=== PATIENT | female | born 1950 | race Caucasian/White ===

== ENCOUNTER 2018-05-03 09:34 | Emergency (ER) | payer MEDICARE, OTHER, SELFPAY ==
[2018-05-03 09:36] VITALS: BP 181/101; PULSE 108; RESP 20; TEMP 37.2; O2SAT 99; BMI 23.3
--- NOTE | 2018-05-03 10:20 | RAD_ITS ---
STUDY: X-RAY - LEFT WRIST REASON FOR EXAM: Female, 68 years old. Trauma. Left ankle pain. TECHNIQUE: 3 view(s) of the wrist were obtained. COMPARISON: None. FINDINGS: Normal visualized distal radius and ulna. Normal radiocarpal articulation. Normal distal radioulnar articulation. There is possible chip fracture at the anterior lateral aspect of the scaphoid bone. Normal carpal articulations. Normal carpometacarpal articulation of the thumb. Normal second through fifth carpometacarpal articulations. Normal visualized metacarpal bones. Calcifications of the triangular fibrocartilage are noted consistent with chondrocalcinosis. RAD/Wrist min 3 Views IMPRESSION: There is possible chip fracture at the anterior lateral aspect of the scaphoid bone. Electronically Signed: Nayana Perez MD at 11:21 EDT Tel , Service support ,
[2018-05-03] MEDS: HYDROcodone Bitartrate/Apap 5/325 Tablet PO (10:22)
[2018-05-03] MEDS: Triamcinolone Acetonide 40 MG/ML Vial IU (10:23)
[2018-05-03 12:30] LABS: Pathologist Comment May follow
[2018-05-03 12:45] LABS: RBC /Synovial Fluid 0.008 10^6/uL (0); Synovial Fld Mononuclear WBC % 16.9 %; Synovial Fld Polynuclear WBC % 83.1 %
[2018-05-03 13:05] LABS: AUTO B FLUID DILUENT BKGD CT WBC <0.1 RBC <0.01 (W<.1,R<.01)
[2018-05-03 13:06] LABS: Appearance /Synovial Fluid Sl Cl (CLEAR); Color / Synovial Fluid Yellow (Pale Yellow); Source / Synovial Fluid LEFT WRIST; Source- Body Fluid SYNOVIAL
[2018-05-03 13:24] LABS: Body Fluid QC Type(s) BF1Q; Lymph 10 %; Monocyte /Synovial Fluid 3 %; Neutrophil 84 % (0-25); Other Cell /Synovial Fluid 3 %
--- NOTE | 2018-05-03 14:56 | ED.VISSUMM ---
- ER Visit Summary Date of Service: 05/03/18 Chief Complaint: Atraumatic left wrist pain and swelling History of Present Illness: The patient is a 68 F who presents with atraumatic left wrist pain and swelling. She has no history of gout or pseudogout. She is on no diuretic. She denies fever, chills or night sweats. She denies any paresthesia, anesthesia motors. She does report some redness that she noted on the dorsal ulnar side of the distal left forearm. Past medical history is unremarkable. Physical Examination: Blood pressure elevated 181/101. Heart rate 108. The left wrist is swollen compared to the right. There is an effusion. There is slight erythema and warmth. There is no lymphangitis, epitrochlear extra lymphadenopathy. There is pain with passive range of motion of the wrist. Extensor and flexor mechanism intact. Sensation is normal. Test Results: Three-view x-ray of the wrist was obtained interpreted by me as negative with no acute process. There are is arthritic changes noted. Emergency Department Course and Treatment: X-ray was obtained to see if there is evidence of pseudogout. And if there is any contraindication performing an arthrocentesis. The wrist was prepped draped sterile manner. The area was anesthetized. 1.5 cc of turbid fluid was aspirated from the left breast. There is 2+ white cells no organisms. There was not sufficient fluid for crystals. However in light of patient's findings consistent with crystal induced arthritis. The joint was instilled with 1/2 cc of Kenalog and 1/2 cc of 1% lidocaine. 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 It may contain incorrect words, spelling, and punctuation that were not noted in review of the chart prior to signing ED Disposition - Plan for ED Patient: Disposition: Home or Assisted Living Chief Complaint: Upper Extremity Injury Instructions: ED Arthritis Gout Referrals: Care Physician,No Primary [Primary Care Provider] - Alvaro Pate DO [STAFF PHYSICIAN] - 3-5 Days if not improving
[2018-05-03] MEDS: predniSONE 20 MG Tablet 60 MG PO (15:08)
[2018-05-03 15:14] VITALS: BP 145/85
[2018-05-04 16:26] LABS: Pathologist Review Reviewed
== END 2018-05-03 15:15 | disposition home or self-care (01) ==
PROVIDERS: Emergency Provider Emergency Medicine
DX: M13.132 Monoarthritis, not elsewhere classified, left wrist (principal); M10.9 Gout, unspecified
CPT/HCPCS: 20605; 20610; 73110; 87070; 87075; 87205; 89050; 89051; 89060; 99283

== ENCOUNTER → 2022-08-08 | Outpatient (CLI) | payer MEDICARE, OTHER, SELFPAY ==
--- NOTE | 2022-08-08 10:40 | ART_ITS ---
Reason For Study: BLE PAIN Left Segmental Pressures Left brachial= 186mmHg. Left posterior tibial artery = 160mmHg. Left dorsalis pedis artery = 163mmHg. The left posterior tibial artery waveforms are triphasic. The left dorsalis pedis waveforms are triphasic. Right Segmental Pressures Right brachial= 185mmHg. Right posterior tibial artery = 62mmHg. Right dorsalis pedis artery = 82mmHg. The right posterior tibial artery waveforms are monophasic. The right dorsalis pedis waveforms are monophasic. Indices The right resting ankle brachial index is 0.44. The right ankle brachial index by the posterior tibial artery is 0.33. The right ankle brachial index by the dorsalis pedis is 0.44. The left resting ankle brachial index is 0.88. The left ankle brachial index by the posterior tibial artery is 0.86. The left ankle brachial index by the dorsalis pedis is 0.88. VL/Ankle Brachial Index Interpretation Summary Monophasic Doppler waveforms are noted at ankle level on the right. Triphasic D oppler waveforms are noted at ankle level on the left. Pulse-volume recordings appear diminished at ankle level on the right. The resting right ankle-brachial index is severely diminished. The resti ng left ankle- brachial index is mildly diminished. There is evidence of severe arterial occlusive disease at ankle level on the ri ght. There is evidence of mild arterial occlusive disease at ankle level on the left. Ordering Physician: Michael Tanner Referring Physician: MICHAEL TANNER MD Performed By: Mary Glass RVT, RDCS
== END | disposition home or self-care (01) ==
LOC: CVS 10:38
PROVIDERS: PCP Family Medicine; Referring Provider Family Medicine; Visit Provider Family Medicine
DX: I73.9 Peripheral vascular disease, unspecified (principal)
CPT/HCPCS: 93922

== ENCOUNTER → 2022-08-26 | Outpatient (CLI) | payer MEDICARE, OTHER, SELFPAY ==
[2022-08-26 17:53] LABS: Creatinine, Serum 0.81 mg/dL (0.55-1.02); EST Glomerular Filtration Rate 74 mL/min (>60); Est Glom Filt Rate - Afr Amer 89 mL/min (>60)
== END | disposition home or self-care (01) ==
LOC: LAB 16:08
PROVIDERS: PCP Family Medicine; Visit Provider Surgery Trauma Surgery
DX: I70.221 Atherosclerosis of native arteries of extremities with rest pain, right leg (principal)
CPT/HCPCS: 36415; 82565

== ENCOUNTER → 2022-09-05 | Outpatient (CLI) | payer MEDICARE, OTHER, SELFPAY ==
--- NOTE | 2022-09-05 13:40 | CT_ITS ---
EXAM: CT ANGIOGRAPHY ABDOMEN AND PELVIS WITH RUNOFF TO THE LOWER EXTREMITIES WITH INTRAVENOUS CONTRAST CLINICAL INDICATION: atherosclerosis with rest pain TECHNIQUE: Helically acquired angiography images were obtained of the abdomen, pelvis and lower extremities with intravenous contrast using CTA runoff protocol. This CT exam was performed using one or more of the following dose reduction techniques: automated exposure control, adjustment of the mA and/or kV according to patient size, and/or use of iterative reconstruction technique. This report was created using [employer] report generation technology. MIP reconstructed images were created and reviewed. CONTRAST: IV 100mL [id number] COMPARISON: None. FINDINGS: VASCULATURE: AORTA: No acute findings. Normal caliber abdominal aorta. No occlusion or significant stenosis. No dissection. CELIAC TRUNK AND MESENTERIC ARTERIES: JOE is absent. No occlusion or significant stenosis of the celiac and SMA. No dissection. RENAL ARTERIES: No acute findings. No occlusion or significant stenosis. No dissection. RIGHT ILIAC ARTERIES: Diffuse atherosclerosis. No occlusion or significant stenosis. No dissection. RIGHT FEMORAL/POPLITEAL ARTERIES: Right femoral artery is diffusely atherosclerotic and small in size. Proximal 4 to 5 cm of the right popliteal artery is occluded but reconstituted via geniculate collaterals. RIGHT CALF/FOOT ARTERIES: Only the right dorsalis pedis artery extends below the ankle. Very faint filling of the right posterior tibial and peroneal arteries. LEFT ILIAC ARTERIES: Diffuse atherosclerosis. No occlusion or significant stenosis. No dissection. LEFT FEMORAL/POPLITEAL ARTERIES: No acute findings. No occlusion or significant stenosis. No dissection. LEFT CALF/FOOT ARTERIES: Left trifurcation vessels are patent but quite small in size. LOWER THORAX: Lung bases are clear. Borderline cardiomegaly. No pericardial effusion. ABDOMEN: LIVER: Moderate hepatic steatosis. No focal mass. GALLBLADDER AND BILE DUCTS: Normal. No calcified gallstones. No gallbladder distention or wall edema. No intra- or extrahepatic biliary ductal dilation. PANCREAS: Normal. No focal cystic or solid mass. SPLEEN: Normal. Normal size without focal cystic or solid mass. ADRENALS: Normal. No nodules. KIDNEYS AND URETERS: Exophytic 2 cm left renal cyst. Normal renal size and position. No hydronephrosis. STOMACH AND BOWEL: Normal. No stomach or bowel distention. No focal inflammatory change. PELVIS: APPENDIX: No evidence of acute appendicitis. BLADDER: Normal. REPRODUCTIVE: Unremarkable as visualized. No mass. ABDOMEN, PELVIS and LOWER EXTREMITIES: INTRAPERITONEAL SPACE: Normal. No ascites or other fluid collection. No free air. BONES/JOINTS: Normal. No suspicious lytic or blastic abnormality. SOFT TISSUES: Normal. No discrete abdominal or pelvic wall hernia. LYMPH NODES: Normal. No enlarged lymph nodes. OTHER FINDINGS: CT/CTA Abd w/Runoff W/WO Contrast IMPRESSION: 1. Occlusion of the proximal 5 cm of the right popliteal artery with single vessel runoff to the right foot and ankle. 2. Small but patent left trifurcation vessels. Electronically Signed: Ruel Couch MD at 15:13 EST ,
== END | disposition home or self-care (01) ==
LOC: CT 13:37
PROVIDERS: PCP Family Medicine; Referring Provider Surgery Trauma Surgery; Visit Provider Surgery Trauma Surgery
DX: I70.221 Atherosclerosis of native arteries of extremities with rest pain, right leg (principal)
CPT/HCPCS: 75635; Q9967

== ENCOUNTER 2022-10-02 06:49 | Day surgery (SDC) | payer MEDICARE, OTHER, SELFPAY ==
[2022-10-01 07:13] VITALS: BMI 22.8
[2022-10-02 07:06] LABS: Hematocrit 28.4 % (37-47); Hemoglobin 9.1 g/dL (12.0-15.0); Mean Corpuscular Hgb 28.3 pg (27.0-32.0); Mean Corpuscular Volume 88.2 fL (81-99); Platelet Count 425 K/mm3 (150-450); RBC Distribution Width CV 15.5 % (11.6-14.6); RBC Distribution Width SD 49.7 fl (35.1-43.9); Red Blood Count 3.22 M/mm3 (4.2-5.4); White Blood Count 8.4 K/mm3 (4.4-11.0)
[2022-10-02 07:18] LABS: BUN 13 mg/dL (7-18); Creatinine, Serum 0.83 mg/dL (0.55-1.02); Glucose 111 mg/dL (74-106)
[2022-10-02 07:19] LABS: Anion Gap 6 (5-15); BUN/Creat Ratio 15.7 RATIO (10-20); Calcium,Total 8.7 mg/dL (8.5-10.1); Chloride 109 mmol/L (98-107); EST Glomerular Filtration Rate 72 mL/min (>60); Est Glom Filt Rate - Afr Amer 87 mL/min (>60); Estimated Creatinine Clearance 69.66 ml/min; Sodium Level 137 mmol/L (136-145)
--- NOTE | 2022-10-02 21:46 | PCM.OPRPT ---
Report of Operation Date of Procedure: 10/02/22 Pre-Operative Diagnosis: atherosclerosis with rest pain, right lower extremity Post-Operative Diagnosis: same Surgery/Procedure Performed:: aortogram, RLE runoff right popliteal atherectomy/DCB Description of Surgical Findings:: above knee popliteal occlusion with reconstitution of p2 segment, AT runoff Resolved with satisfactory result after intervention Surgeon: Robbin White Type of Anesthesia: Local and Sedation,Conscious Estimated Blood Loss (mL): 5 Description of Procedure: HPI: Patient is a 72 female with abrupt onset of shortness of claudication and nocturnal rest pain. She had noninvasive vascular which revealed significant arterial sufficiency and CT angiography revealed a short segment popliteal occlusion. She presents now for angiogram possible invention. Description of procedure: Upon obtaining informed consent and verification of correct patient procedure site the patient was taken to the [facility] where she was positioned prepped and draped in usual sterile fashion. Timeout was then performed and conscious sedation administered with intermittent doses of Versed and fentanyl. Skin over the left common femoral artery was anesthetized 1% lidocaine and ultrasound used to access the vessel in retrograde fashion using micropuncture needle and wire. There is unchanged for a micropuncture sheath through which hand-injection femoral angiogram was performed which revealed satisfactory placement no extravasation or dissection. Through this a Bentson wire was advanced and the micropuncture sheath exchanged out for a short 5 Armenian sheath. Through the 5 Armenian sheath and Omni Flush catheter was advanced and abdominal aorta and digital traction aortogram pelvic angiogram was performed. Using the Omni Flush catheter and Bentson wire we navigated to the contralateral iliac system advancing a catheter into the distal external iliac artery. This position subtraction angiography was performed with serial images of the right lower extremity which revealed a above-knee popliteal occlusion. This was felt to be appropriate for endovascular invention, so the Bentson wire was readvanced through the Omni Flush catheter advanced into the distal superficial femoral artery. Bentson wire was then withdrawn and the 5 Armenian sheath exchanged out for a 7 Armenian destination sheath which was advanced into position with the distal tip in the proximal superficial femoral artery. The patient was then heparinized systemically none to circulate for 3 minutes. Next using Bentson wire and a quick cross catheter we were able to successfully cross the total occlusion remaining within the true lumen. Catheter was advanced beyond the lesion and the wire withdrawn, and hand-injection through the catheter revealed position within the true lumen. We then advanced a George bare wire through the quick cross catheter into position beyond the lesion and withdrew the quick cross catheter. A George Embo shield was advanced over the wire and positioned in the distal popliteal artery. Next a [employer] jetstream rotational atherectomy device was brought in the field and prep for drug and alcohol treatment specialist instructions. This then advanced over the filter wire and positioned cephalad to the occlusion. It was then engaged in blades down configuration for 2 passes and then withdrawn. Repeat angiography revealed significant luminal gain with antegrade flow transit across the lesion. No evidence of embolization. Next a Serranator serrated angioplasty balloon was brought on the field and prep for drug and alcohol treatment specialist instruction. This was then advanced over the wire, positioned within the lesion and inflated to nominal. Below is a deflated withdrawn, and repeat angiography revealed satisfactory luminal gain with no residual stenosis, no extravasation, no dissection. She is felt to be appropriate response to the lesion and that it would respond well to paclitaxel coated balloon angioplasty, so a [employer] 4 x 60 angioplasty balloon was then advanced in the position inflated to nominal for 3 minutes then deflated withdrawn. Repeat angiography revealed satisfactory resolution of lesion with no extravasation dissection or residual stenosis. There was a luminal irregularity distal to the lesion but proximal to the filter that appeared to be some embolism in transit. The balloon was then reinserted centered on the irregularity, and inflated nominal for 2 minutes then deflated withdrawn. The lesion appeared to dislodge and be caught by the filter, so the filter was then retrieved and withdrawn with obvious debris in the filter upon its removal. Completion angiography revealed no residual stenosis or luminal irregularity and preserved tibial runoff. See no further need for intervention the 7 Armenian sheath exchanged out for a short 7 Armenian sheath followed by Marcelino and 2 minutes of manual pressure. At the clean the case patient was taken to the recovery room anticipated discharge home after bedrest. Radiograph interpretation: Abdominal aorta normal caliber with diffuse calcification but no stenosis. Left common iliac artery widely patent with diffuse mild atherosclerosis and calcification but no stenosis. Left internal iliac artery patent with no significant stenosis. Left external iliac and common femoral artery patent with no significant atherosclerosis or stenosis. Right common iliac artery patent with mild to moderate diffuse atherosclerosis, calcification but no significant stenosis. Right internal iliac artery small in caliber with diffuse atherosclerosis but patent. Right external iliac artery patent with mild diffuse atherosclerosis but no significant stenosis. Right common femoral artery patent with no significant atherosclerosis or stenosis, right profundofemoral artery widely patent no atherosclerosis or stenosis right superficial femoral artery widely patent with no significant atherosclerosis or stenosis. Right above-knee popliteal total occlusion with reconstitution of the P2 segment via collaterals, with patent mild atherosclerosis of the remainder of the popliteal artery. The anterior tibial artery is a dominant outflow and is large in caliber, widely patent with no sign of atherosclerosis. The tibioperoneal trunk is patent with no significant atherosclerosis or stenosis. The peroneal artery occludes at its origin and reconstitutes a small caliber vessel intermittently throughout the lower leg. The posterior tibial artery does not appear to opacify at any point.
[2023-12-18 16:03] LABS: ACT Activated Clotting Time 203 sec (74-137)
== END 2022-10-02 23:59 | disposition home or self-care (01) ==
PROVIDERS: PCP Family Medicine; Referring Provider Surgery Trauma Surgery; Visit Provider Surgery Trauma Surgery
DX: I70.221 Atherosclerosis of native arteries of extremities with rest pain, right leg (principal); I70.92 Chronic total occlusion of artery of the extremities; F17.210 Nicotine dependence, cigarettes, uncomplicated; Z79.82 Long term (current) use of aspirin; Z79.899 Other long term (current) drug therapy
CPT/HCPCS: 37184; 36200; 36245; 36415; 37224; 37225; 75625; 75710; 76937; 80048; 85027; 85347; 99152; 99153; C1724; C1725; C1760; C1769; C1884; C2623; J7030; J7040; Q9967; C1887; C1894

== ENCOUNTER → 2022-10-16 | Outpatient (CLI) | payer MEDICARE, OTHER, SELFPAY ==
--- NOTE | 2022-10-16 12:32 | ADUL_ITS ---
Reason For Study: S/P Rt Jessica Atherectomy Right Velocities Ext. Iliac Artery, dist = 147.4 cm./sec. Common Femoral Artery, mid = 146.7 cm./sec. Supf Femoral Artery, prox = 128.6 cm./sec. Supf Femoral Artery, mid = 138.9 cm./sec. Supf Femoral Artery, dist. = 177.8 cm./sec. Profunda Femoral Artery = 70.7 cm./sec. Popliteal Artery, mid = 81.8 cm./sec. Post. Tibial Artery, prox = 73.2 cm./sec. Post. Tibial Artery, mid = 28.4 cm./sec. Post. Tibial Artery, dist = 25.0 cm./sec. Peroneal Artery, prox = 59.8 cm./sec. Peroneal Artery, mid = 37.2 cm./sec. Peroneal Artery,dist = 65.1 cm./sec. Ant. Tibial Artery, prox = 44.1 cm./sec. Ant. Tibial Artery, mid = 66.8 cm./sec. Ant. Tibial Artery, dist = 85.5 cm./sec. Procedure The exam was diagnostic. Exam performed in department. VL/US Art Duplex Unilat Lower Ext Interpretation Summary Right lower extremity arteries patent with normal waveforms and velocities thro ughout with no stenosis identified. Ordering Physician: Robbin White Referring Physician: Elizabeth Tanner Performed By: Abdulaziz Franco, RVT
--- NOTE | 2022-10-16 12:32 | ART_ITS ---
Reason For Study: S/P Rt Jessica Atherectomy Procedure A bilateral lower extremity continuous wave Doppler with analog waveform analysis and ankle brachial indexes. Left Segmental Pressures Left brachial= 147mmHg. Left posterior tibial artery = 136mmHg. Left dorsalis pedis artery = 122mmHg. The left posterior tibial artery waveforms are biphasic. The left dorsalis pedis waveforms are triphasic. Right Segmental Pressures Right brachial= 142mmHg. Right posterior tibial artery = 129mmHg. Right dorsalis pedis artery = 143mmHg. The right posterior tibial artery waveforms are biphasic. The right dorsalis pedis waveforms are triphasic. Indices The right ankle brachial index by the posterior tibial artery is 0.88. The right ankle brachial index by the dorsalis pedis is 0.97. The left ankle brachial index by the posterior tibial artery is 0.93. The left ankle brachial index by the dorsalis pedis is 0.83. VL/Ankle Brachial Index Interpretation Summary Right SUSAN 0.97, mild arterial insufficiency. Doppler/PVR waveforms of the right ankle normal at rest. Left SUSAN 0.93, mild arterial insufficiency. Doppler/PVR waveforms of the left a nkle normal at rest. Ordering Physician: Robbin White Referring Physician: Elizabeth Tanner Performed By: Abdulaziz Franco, RVT
--- NOTE | 2022-10-16 12:32 | VDLE_ITS ---
Reason For Study: LEG PAIN RIGHT LEFT GSV is normal. GSV is normal. CFV is compressible, spontaneous, competent CFV is partially compressible, spontaneous, and demonstrates pulsatile venous flow. phasic, competent, and demonstrates normal FV is compressible, spontaneous, competent augmentation. Mixed echoes noted and demonstrates pulsatile venous flow. intraluminally on the superior wall of the POP V is compressible, spontaneous, phasic, vessel at the SFJ. competent and demonstrates normal FV is compressible, spontaneous, phasic, augmentation. competent and demonstrates normal T/P Trunk is compressible. augmentation. PTV is compressible. POP V is compressible, spontaneous, phasic, RT PerV is compressible. competent and demonstrates normal Procedure augmentation. This is a venous duplex using B-mode, color T/P Trunk is compressible. flow and spectral Doppler. PTV is compressible. Exam performed in department. LT PerV is compressible. The exam was diagnostic. Zaria [facility] RN. VL/Venous Duplex US - Valentino Extrem Interpretation Summary Non-occlusive mural thrombus on the anterior wall of the left common femoral ve in. Deep veins of the right lower extremity are patent and compressible segmentally . There is no evidence of right lower extremity deep vein thrombosis. The right great sapheno us vein appears patent and compressible segmentally. Ordering Physician: Robbin White Referring Physician: Elizabeth Tanner Performed By: Abdulaziz Franco, RVT
[2022-10-16 13:06] LABS: Absolute Lymphocyte Count 1.78 X10^3/uL (0.83-4.51); Absolute Neutrophil Count 6.8 X10^3/uL (2.0-7.7); Basophil# 0.07 X10^3/uL; Basophil% 0.7 % (0-1); Eosinophil# 0.16 X10^3/uL; Eosinophils% 1.7 % (0-5); Hematocrit 25.2 % (37-47); Hemoglobin 7.7 g/dL (12.0-15.0); Lymphocyte # 1.78 X10^3/ul (0.83-4.51); Lymphocyte % 18.6 % (19-41); Mean Corp Hgb Conc 30.6 g/dL (32-36); Mean Corpuscular Hgb 26.5 pg (27.0-32.0); Mean Corpuscular Volume 86.6 fL (81-99); Mean Platelet Vol. 8.6 fl (6.2-12.0); Monocyte# 0.77 X10^3/uL; NRBC Flagged by Analyzer 0 % (0-5); Neutrophil # 6.76 X10^3/uL (2.7-7.7); Neutrophil % 70.6 % (47-70); Platelet Count 557 K/mm3 (150-450); RBC Distribution Width CV 15.4 % (11.6-14.6); RBC Distribution Width SD 49.3 fl (35.1-43.9); Red Blood Count 2.91 M/mm3 (4.2-5.4); White Blood Count 9.6 K/mm3 (4.4-11.0)
[2022-10-16 13:59] LABS: ALB/GLOB Ratio 0.8 RATIO (0.9-2.4); AST(SGOT) 9 U/L (15-37); Alanine Aminotransfer ALT/SGPT 14 U/L (13-56); Albumin, Serum 3.4 g/dL (3.2-5.0); Alkaline Phosphatase 134 U/L (45-117); Anion Gap 8 (5-15); BUN 12 mg/dL (7-18); BUN/Creat Ratio 14.2 RATIO (10-20); CPK Total, Creatine Kinase 39 U/L (26-192); Calcium,Total 9.1 mg/dL (8.5-10.1); Chloride 104 mmol/L (98-107); Creatinine, Serum 0.85 mg/dL (0.55-1.02); EST Glomerular Filtration Rate 70 mL/min (>60); Est Glom Filt Rate - Afr Amer 84 mL/min (>60); Globulin 4.2 g/dL (2.2-4.2); Glucose 90 mg/dL (74-106); Potassium 3.8 mmol/L (3.5-5.1); Protein, Total 7.6 g/dL (6.4-8.2); Sodium Level 134 mmol/L (136-145)
== END | disposition home or self-care (01) ==
PROVIDERS: PCP Family Medicine; Referring Provider Surgery Trauma Surgery; Visit Provider Surgery Trauma Surgery
DX: F17.200 Nicotine dependence, unspecified, uncomplicated (principal); I70.221 Atherosclerosis of native arteries of extremities with rest pain, right leg; I82.409 Acute embolism and thrombosis of unspecified deep veins of unspecified lower extremity; M79.604 Pain in right leg; M79.605 Pain in left leg
CPT/HCPCS: 36415; 80053; 82550; 85025; 93922; 93926; 93970

== ENCOUNTER 2022-10-17 16:44 | Emergency (ER) | payer MEDICARE, OTHER, SELFPAY ==
[2022-10-17 16:46] VITALS: BP 122/82; PULSE 97; RESP 18; TEMP 36.6; O2SAT 100; BMI 21.7
[2022-10-17 19:33] LABS: Absolute Lymphocyte Count 2.13 X10^3/uL (0.83-4.51); Absolute Neutrophil Count 4.8 X10^3/uL (2.0-7.7); Basophil# 0.07 X10^3/uL; Basophil% 0.9 % (0-1); Eosinophil# 0.28 X10^3/uL; Eosinophils% 3.5 % (0-5); Hematocrit 23.3 % (37-47); Hemoglobin 7.1 g/dL (12.0-15.0); Lymphocyte # 2.13 X10^3/ul (0.83-4.51); Lymphocyte % 26.6 % (19-41); Mean Corp Hgb Conc 30.5 g/dL (32-36); Mean Corpuscular Volume 85.3 fL (81-99); Mean Platelet Vol. 8.5 fl (6.2-12.0); Monocyte# 0.68 X10^3/uL; Monocyte% 8.5 % (0-10); NRBC Flagged by Analyzer 0 % (0-5); Neutrophil # 4.81 X10^3/uL (2.7-7.7); Neutrophil % 59.9 % (47-70); Platelet Count 510 K/mm3 (150-450); RBC Distribution Width CV 15.5 % (11.6-14.6); RBC Distribution Width SD 47.8 fl (35.1-43.9); Red Blood Count 2.73 M/mm3 (4.2-5.4)
[2022-10-17 19:49] LABS: Anion Gap 7 (5-15); BUN 11 mg/dL (7-18); BUN/Creat Ratio 14.7 RATIO (10-20); Calcium,Total 9.1 mg/dL (8.5-10.1); Chloride 105 mmol/L (98-107); Creatinine, Serum 0.75 mg/dL (0.55-1.02); EST Glomerular Filtration Rate 81 mL/min (>60); Est Glom Filt Rate - Afr Amer 97 mL/min (>60); Glucose 96 mg/dL (74-106); Potassium 4.1 mmol/L (3.5-5.1); Sodium Level 135 mmol/L (136-145)
[2022-10-17 20:38] VITALS: BP 127/67; PULSE 101; RESP 18; O2SAT 97
--- NOTE | 2022-10-17 20:39 | EX.ED.DYSGE1 ---
HPI History of Present Illness Chief Complaint: Abn Labs Informant: patient and family Narrative Narrative: Patient presents with referral from her primary doctor. They tried to arrange outpatient transfusion but they were closed. Since the patient is having symptomatic anemia they would like to get transfusion prior to the weekend. This patient does have some anemia. She had anemia prior to her recent right popliteal angioplasty. She states they went in the left side. She had fair amount of bruising on the left side but it is now resolved. But she has felt kind of weak and tired. She is on aspirin and Plavix but denies any active bleeding. She states she does not have bloody or dark stools. She does have increased bowel movements. No blood in the urine. No vaginal bleeding. No bruising anywhere. She is not having dental or nose bleeding. She is having no areas of new pain. She states if she gets active she just does feel weak and tired but not having chest pain. She has never been syncopal or presyncopal. She does states her energy is very low. She has no fevers or chills. No abdominal pain. She is eating and drinking normally. No muscle aches. She states she has some aching in the right leg that slowly improving after surgery. I reviewed her chart regarding past medical history, surgery history, meds, she has no allergies. She has been a smoker and lives with family. [facility] Medical History Alcohol abuse Hearing loss (~1953) Postmenopausal (~2019) Tobacco dependence (~1997) Home Medications aspirin 81 mg tablet 81 mg PO DAILY 08/26/22 [History Last Taken Unknown] clopidogrel 75 mg tablet (Plavix) 75 mg PO DAILY #90 tabs 10/02/22 [Rx Last Taken Unknown] Allergy/AdvReac Type Severity Reaction Status Date / Time No Known Allergies Allergy Verified 10/17/22 16:45 Family History Father Myocardial infarction at 62 yrs old Grandmother Diabetes Sister Lung cancer Mother Cancer Other Alcohol abuse Hypertension Social History Smoking Status: Current every day smoker tobacco type: cigarettes ROS ROS ED ROS Narrative Use symptoms as negative other than HPI. Constitutional Constitutional ED: Denies fever(s) ENT ENT ED: Denies rhinorrhea Cardiovascular Cardiovascular: Denies chest pain or palpitations Respiratory/Chest Respiratory/Chest: Denies cough Gastrointestinal Gastrointestinal: Denies diarrhea or melena Genitourinary Genitourinary ED: Denies hematuria Musculoskeletal Musculoskeletal: Denies myalgias Integumentary Denies rash Neurologic Neurologic: Denies headache(s) Endocrine Endocrinology: Denies polydipsia or polyuria Hematologic/Lymphatic Hematologic/Lymphatic: Reports other Details: Patient is on Plavix but denies easy bleeding. EXAM Physical Exam Narrative Exam Narrative: Patient is awake alert. She is sitting comfortably on bed. She is in no acute distress. Breathing is normal. She does have pallor of her skin. Conjunctive is pale. Mucous membranes are moist. There is no JVD. Lungs are clear. Heart rate is regular with rate about 90. No murmur is heard. Abdomen is soft and completely nontender. She has no more bruising in the left groin. Both lower extremities are reasonably warm. No sign of cyanosis or poor blood flow. There is no CVA tenderness. Skin shows pallor but no bruising or petechiae. No intraoral petechiae. She is awake alert no acute distress. She is neurologically intact other than significantly hard of hearing which is chronic for her. Const Vital Signs: 10/17/22 16:46 10/17/22 20:37 10/17/22 20:38 Temperature 97.8 F Temperature Source Temporal Pulse Rate 97 101 H Respiratory Rate 18 18 Respiratory Effort Normal Respiratory Pattern Normal Blood Pressure 122/82 H 127/67 H Blood Pressure Mean 95 87 Pulse Ox 100 97 Oxygen Delivery Method Room Air Room Air MDM MDM MDM Narrative Medical decision making narrative: I did review outpatient labs that have been done on this patient prior to arrival here. She actually had hemoglobins only in the 9 range and mid end of September prior to surgery. Those have dropped now to 7.1. She had an intervening about 7.6. Her indices do show some component of iron deficiency. She was just started on iron and vitamin supplements today. Our blood work shows normal white count but anemia at 7.1. Platelets are mildly up at 510. Electrolytes are not showing any marked abnormalities. Renal function is normal. Her blood type is be positive. Patient was told that she can get transfusion and go home and follow-up for further work-up. I think this is reasonable since she has no source of active bleeding. She reports no black or bloody stool. Since she already started iron Hemoccult could be positive but she has had no gross bleeding. She was anemic had surgery with bruising and now has dropped. Hopefully she will improve with transfusion. We did discuss reasons to return. I rechecked the patient. She is still doing well. We are waiting for blood to arrive. Plan will be to get her transfusion. She already has the prescriptions for multivitamins, vitamin D and iron. She will be following up with her doctor. We discussed that if she has any GI bleeding, red blood or black stools or bleeding from any other sources she should return. If she develops chest pain syncope or any other complaints or sources of bleeding or pain she should return. Lab Data Attestation: I reviewed the patient's lab results. Labs: Laboratory Results - last 24 hr 10/17/22 10/17/22 10/17/22 19:25 19:25 19:25 WBC 8.0 RBC 2.73 L Hgb 7.1 L Hct 23.3 L MCV 85.3 MCH 26.0 L MCHC 30.5 L RDW Std Deviation 47.8 H RDW Coeff of Edwardo 15.5 H Plt Count 510 H MPV 8.5 Immature Gran % (Auto) 0.600 Neut % (Auto) 59.9 Lymph % (Auto) 26.6 Mora % (Auto) 8.5 Eos % (Auto) 3.5 Baso % (Auto) 0.9 Absolute Neuts (auto) 4.8 Absolute Lymphs (auto) 2.13 Nucleated RBC % 0 Sodium 135 L Potassium 4.1 Chloride 105 Carbon Dioxide 23.0 Anion Gap 7 BUN 11 Creatinine 0.75 Estim Creat Clear Calc 57.40 Est GFR (MDRD) Af Amer 97 Est GFR (MDRD) Non-Af 81 BUN/Creatinine Ratio 14.7 Glucose 96 Calcium 9.1 Blood Type B POSITIVE Antibody Screen NEGATIVE Crossmatch See Detail Discharge Plan Triage Chief Complaint: Abn Labs ED Provider: Darius Rich Dx/Rx/DC Orders Clinical Impression: Symptomatic anemia, History of transfusion of packed RBC Instructions: When You Need a Blood ..., Anemia Prescriptions: No Action aspirin 81 mg tablet 81 mg PO DAILY clopidogrel [Plavix] 75 mg tablet 75 mg PO DAILY Qty: 90 2RF Primary Care Provider: Elizabeth Tanner Referrals: Elizabeth Tanner MD [Primary Care Provider] - 3-5 Days Disposition Disposition: Home, Self Care
[2022-10-17 23:58] VITALS: BP 132/70; PULSE 98; RESP 18; TEMP 35.9; O2SAT 98
[2022-10-18 00:03] VITALS: BP 132/70; PULSE 95; RESP 18; TEMP 36; O2SAT 98
[2022-10-18 00:18] VITALS: BP 140/70; PULSE 92; RESP 16; TEMP 35.9; O2SAT 98
[2022-10-18 00:41] VITALS: BP 144/74; PULSE 85; RESP 16; TEMP 36.3; O2SAT 99
== END 2022-10-18 00:47 | disposition home or self-care (01) ==
PROVIDERS: Emergency Provider Emergency Medicine; PCP Family Medicine; Visit Provider Emergency Medicine
DX: D64.9 Anemia, unspecified (principal); F17.210 Nicotine dependence, cigarettes, uncomplicated
CPT/HCPCS: 80048; 85025; 86850; 86900; 86901; 86920; 86922; 99283; P9016; A4216

== ENCOUNTER → 2022-10-21 | Outpatient (CLI) | payer MEDICARE, OTHER, SELFPAY ==
[2022-10-21 12:37] LABS: Absolute Lymphocyte Count 1.82 X10^3/uL (0.83-4.51); Absolute Neutrophil Count 6.8 X10^3/uL (2.0-7.7); Basophil# 0.08 X10^3/uL; Basophil% 0.8 % (0-1); Eosinophil# 0.09 X10^3/uL; Eosinophils% 0.9 % (0-5); Hemoglobin 8.3 g/dL (12.0-15.0); Immature Platelet Fraction 1.3 % (1.0-7.9); Lymphocyte # 1.82 X10^3/ul (0.83-4.51); Lymphocyte % 19.2 % (19-41); Mean Corp Hgb Conc 30.7 g/dL (32-36); Mean Corpuscular Hgb 26.4 pg (27.0-32.0); Mean Platelet Vol. 8.7 fl (6.2-12.0); Monocyte# 0.63 X10^3/uL; Monocyte% 6.6 % (0-10); NRBC Flagged by Analyzer 0 % (0-5); Neutrophil % 71.9 % (47-70); POSITIVE COUNT YES; POSITIVE MORPHOLOGY YES; Platelet Count 610 K/mm3 (150-450); RBC Distribution Width CV 15.9 % (11.6-14.6); Red Blood Count 3.14 M/mm3 (4.2-5.4); White Blood Count 9.5 K/mm3 (4.4-11.0)
[2022-10-21 12:47] LABS: Differential Indicated SCAN CRITERIA MET
[2022-10-21 13:21] LABS: Vitamin B12 365 pg/mL (211-911)
[2022-10-21 13:25] LABS: Ferritin 12 ng/mL (8-252); Iron 30 ug/dL (50-170); Iron Binding Capacity,Total 429 ug/dL (250-450)
[2022-10-21 13:44] LABS: RET-HE 23.3 pg (30-35); Reticulocyte Count 5.24 % (0.5-1.5)
[2022-10-21 13:47] LABS: Differential Comment SCANNED
[2022-10-21 13:48] LABS: Hypochromasia 1+; Platelet Estimate SLT INC (ADEQ)
== END | disposition home or self-care (01) ==
LOC: BFHLAB 10:54
PROVIDERS: PCP Family Medicine; Visit Provider Family Medicine
DX: D64.9 Anemia, unspecified (principal)
CPT/HCPCS: 36415; 82607; 82728; 82746; 83540; 83550; 85025; 85045

== ENCOUNTER → 2022-10-21 | Outpatient (CLI) | payer MEDICARE, OTHER, SELFPAY ==
--- NOTE | 2022-10-21 13:48 | VDLE_ITS ---
Reason For Study: pain Procedure LEFT This is a venous duplex using B-mode, color GSV is normal. flow and spectral Doppler. CFV is partially compressible, spontaneous, Exam performed in department. phasic, competent, and demonstrates normal The exam was abbreviated due to the COVID 19 augmentation. Mixed echoes noted protocol. intraluminally on the superior wall of the The exam was diagnostic. vessel at the [facility]. A preliminary report was called and/or faxed FV is compressible, spontaneous, phasic, to Dr. White. competent and demonstrates normal augmentation. POP V is compressible, spontaneous, phasic, competent and demonstrates normal augmentation. T/P Trunk is compressible. PTV is compressible. LT PerV is compressible. VL/Venous Duplex US, Unilateral Interpretation Summary Non-occlusive mural thrombus identified in the left common femoral vein, unchan gealberto from previous study. Ordering Physician: Padma Magana Performed By: Lamberto Nicholas, RVT
== END | disposition home or self-care (01) ==
LOC: CVS 13:48
PROVIDERS: PCP Family Medicine; Visit Provider Physician Assistant
DX: I82.4Y2 Acute embolism and thrombosis of unspecified deep veins of left proximal lower extremity (principal); D64.9 Anemia, unspecified
CPT/HCPCS: 36415; 82607; 82728; 82746; 83540; 83550; 85025; 85045; 93971

== ENCOUNTER → 2022-10-31 | Outpatient (CLI) | payer MEDICARE, OTHER, SELFPAY ==
[2022-10-31 16:24] LABS: Thyroid Stim Hormone (TSH) 1.76 uIU/mL (0.358-3.74)
[2022-11-03 22:06] LABS: Thyroid Peroxidase AB 10 IU/mL (0-34)
[2022-11-03 22:11] LABS: Thyroglobulin Antibody < 1.0 IU/mL (0.0-0.9)
== END | disposition home or self-care (01) ==
LOC: BFHLAB 13:59
PROVIDERS: PCP Family Medicine; Visit Provider Family Medicine
DX: E03.9 Hypothyroidism, unspecified (principal)
CPT/HCPCS: 36415; 84439; 84443; 86376; 86800

== ENCOUNTER 2022-11-05 09:40 | Day surgery (SDC) | payer MEDICARE, OTHER, SELFPAY ==
[2022-11-05] VITALS (8 sets, daily range): BP systolic 105–137; BP diastolic 58–88; PULSE 80–92; RESP 17–18; TEMP 36.3–36.6; O2SAT 94–100; BMI 21.4
--- NOTE | 2022-11-05 | GASB_PTH ---
PATIENT: MARIETTA CASIANO LOC: EN U#:[id number] AGE/SX: 72/F ROOM: RE11/05/[address]: Dr. Tyra Choudhury MD : 1950 BED: DIS: 11/05/2022 SPEC #: [id number] RECD: 11/05/22 13:21 STATUS: SANDY JUANY #: [id number] DA: 11/05/22 00:[address]: Tyra Choudhury DEPT: SURGICAL PATHOLOGY RECD BY: Trey Maloney ENTERED: 11/06/22 09:21 SP TYPE: Gastric Bx OTHR DR: Dr. Elizabeth Tanner MD Tissues: A - Gastric mucous membrane B - Transverse colon C - Descending colon Procedures: Surgery Specimen Level IV HEADER OPERATION: Colonoscopy, EGD ([facility] [place] biopsy, polypectomy PRE-OP DIAGNOSIS: Anemia TISSUE SUBMITTED: A ? Antral biopsy and H. pylori and path, B ? Transverse colon polyps x2, C ? Descending colon polyp MICROSCOPIC DIAGNOSIS A. Gastric antrum, biopsy: Minimal chronic inflammation. See comment. B. Transverse colon polyp, biopsy: Fragments of tubular adenoma. C. Descending colon polyp, biopsy: Tubular adenoma. AM:rory 11/07/2022 COMMENT A. The results of immunohistochemistry for Helicobacter pylori will be reported separately ([id number]). MICROSCOPIC DESCRIPTION Slides are reviewed. GROSS DESCRIPTION A - Received in fixative is one container labeled with the patient's name and designated antral biopsy. The specimen consists of one irregular fragment of light sutton soft tissue that measures 0.5 x 0.3 x 0.1 cm. The specimen is totally submitted in one cassette. B - Received in fixative is one container labeled with the patient's name and designated transverse colon polyp. The specimen consists of two irregular fragments of light sutton soft tissue that in aggregate measure 0.7 x 0.5 x 0.1 cm. The specimen is totally submitted in one cassette. C - Received in fixative is one container labeled with the patient's name and designated descending colon polyp. The specimen consists of one irregular fragment of light sutton soft tissue that measures 0.5 x 0.3 x 0.1 cm. The specimen is totally submitted in one cassette. / AM:rory 11/06/2022 TC:3 CPT: 77499 x3
[2022-11-05] MEDS: Lactated Ringers 1,000 ML 15 ML IV (10:03)
--- NOTE | 2022-11-05 10:03 | HP.PCM_ITS ---
History and Physical Date of Admission: 11/05/22 Date of Service:? 10/27/22 MR#: [id number] Acct: [id number] Name:MARIETAT DOUGHERTY Rep #: [id number] : 1950 ? ? Provider: Dr. Tyra Choudhury MD Age/Sex:? 72/F ? ? Location: [facility] Status: Signed Intake Vital Signs ? 10/17/2315:46 10/27/2312:33 Height 6 ft 6 ft Weight: ? 164 lb BMI ? 22.2 BP ? 147/80 H Blood Pressure Location ? Rt brachial Position ? Sitting Respiration ? 16 Intake Visit Reasons:?Anemia Chief Complaint: anemia [employer] Chair Required: No Is patient in pain?: No Allergies No Known Allergies Allergy (Verified 10/27/22 13:34) Medications aspirin 81 mg tablet 81 mg PO DAILY 08/26/22 [History Confirmed 10/27/22] clopidogrel 75 mg tablet (Plavix) 75 mg PO DAILY #90 tabs 10/02/22 [Rx Confirmed 10/27/22] PFSH Medical History? Alcohol abuse Hearing loss (~1952) Postmenopausal (~2019) Tobacco dependence (~1997) Family History? Father Myocardial infarction ?? ? at 62 yrs oldGrandmother DiabetesSister Lung cancerMother CancerOther Alcohol abuse Hypertension Social History? Smoking Status:? Current every day smoker tobacco type: cigarettes HPI HPI HPI: 72-year-old female presents due to anemia for EGD and colonoscopy.? Patient states he is she has never had previous scopes.? Patient's hemoglobin did trend down from 9.1-7 0.7-7.1 she did get 1 unit of packed red blood cells on 10/17?most recent hemoglobin is 8.3.? Patient states she has bowel movements about every 3 days does complain of constipation denies any blood in her stool.? Patient denies any reflux symptoms.? Patient is on aspirin and Plavix daily.? Patient recently underwent right popliteal thrombectomy on 10/[address] White. ROS General General: Yes weight change and fatigue; No appetite, colon cancer, breast cancer or weakness HEENT HEENT: No difficulty swallowing, eye injury, eye surgery, swollen glands or hoarseness Endo Endocrine: No thyroid disease, diabetes mellitus, thyroid cancer, Hair loss, heat intolerance or cold intolerance Skin Skin: No rash or changing moles Breast Breast: No left breast lump, right breast lump, nipple discharge, breast pain, abnormal mammogram, abnormal US or breast enlargement Musc Musculoskeletal: Yes back problems; No arthritis, rheumatoid arthritis, gout or joint pain Cardio Cardiovascular: No murmur, pacemaker, heart disease, atrial fibrillation, high blood pressure, heart attack, heart stent, palpitations, shortness of breat with exertion or chest pain Psych Psychiatric: Yes anxiety; No depression or hearing voices Resp Respiratory: Yes shortness of breath, No sleep apnea, No cough, No COPD, No asthma, No emphysema and No wheezing Gastro Gastrointestinal: No abdominal pain, No nausea or vomiting, No diarrhea, Yes constipation, No blood in stool, Yes acid reflux, No hemorrhoids, No ulcers, No gallbladder problem and No black,tarry stools Beto Hematologic: Yes blood thinners, No blood disorders, No bleeding, Yes anemia and No blood clots Neuro Neurologic: No system reviewed and no additional complaints, except as documented, No as per HPI, No abnormal gait, No abnormal hearing, No abnormal movements, No abnormal speech, No behavioral changes, No burning sensations, No confusion, No convulsions, No disequilibrium, No dizziness, No localized weakness, No frequent falls, No headache(s), No lack of coordination, No loss of vision, No memory loss, No numbness, No other visual disturbances, No radicular pain, No restless legs, No sensory deficit, No syncope, No tingling, No tremor(s), No weakness and No other Exam Const General: cooperative, healthy appearing and no acute distress Nutritional Appearance: thin HENMT Head: normal to inspection Resp Effort & Inspection: normal respiratory effort Auscultation: clear to auscultation bilaterally Cardio Rate: regular rate Rhythm: regular rhythm GI Inspection: non-distended Palpation: soft, no guarding and nontender Skin General: no rashes or lesions noted Neuro General: patient alert, patient awake and patient oriented x3 Psych Affect: normal affect Assessment and Plan Assessment and Plan (1) Anemia: ?Status:?Acute Plan Patient will stay on her aspirin and Plavix due to the previous right popliteal thrombectomy and angioplasty in late September. I have discussed the above with the patient. I have offered the patient EGD and colonoscopy for evaluation. I have explained the risks/benefits of the procedure and described the procedure.? I have discussed the risks with the patient, including but not limi sanjuana to:? infection, bleeding, perforation of the GI tract requiring emergency surgery, inability to complete the procedure, injury to any internal organs, complications of anesthesia, etc. - the patient understands and agrees to proceed. I have answered all the patient's questions to the patient's satisfaction and the patient has no further questions. The patient has been given instructions for the colon cleansing preparation.? 2- day of clears, MiraLAX Dulcolax split prep.? With additional Dulcolax the first day Tyra Choudhury M.D. Pager: [phone] [facility] [address] [place] [address], [facility], [address] [place] [address] Office: [phone] Coding Level of Care Code Off vis,new,level 3 Diagnoses Anemia? D64.9 10/29/22 1032 <Electronically signed by Tyra Choudhury MD> Date Tyra Choudhury MD
--- NOTE | 2022-11-05 10:45 | IMM_PTH ---
PATIENT: MARIETTA CASIANO LOC: EN U#:[id number] AGE/SX: 72/F ROOM: RE11/05/[address]: Dr. Tyra Choudhury MD : 1950 BED: DIS: 11/05/2022 SPEC #: [id number] RECD: 11/06/22 12:13 STATUS: SANDY REQ #: [id number] DA: 11/05/22 10:[address]: Tyra Choudhury DEPT: IMMUNOHISTOCHEMISTRY RECD BY: Rachel Campoverde ENTERED: 11/06/22 12:14 SP TYPE: IMMUNO OTHR DR: Dr. Elizabeth Tanner MD Tissues: A - Stomach, NOS Procedures: H Pylori (initial) PHYSICIAN & INSTITUTION [place] [id number] SPECIMEN INFORMATION: Tissue Source: A ? Antral biopsy Clinical Info: Anemia Specimen Number: [id number] CPT code: 49731 METHODOLOGY: Deparaffinized sections of prefer/formalin-fixed tissue or PAP/DQ stained slides are incubated with monoclonal/polyclonal antibodies/oligonucleotide probes. Localization is made via biotin free immunoperoxidase method. Appropriate controls are performed and reacted as expected. Results on target cell population are indicated in the following table: RESULTS: ANTIBODY / CLONE RESULT Block A H Pylori (polyclonal) negative These tests were developed and their performance characteristics determined by [facility]. They may not have been cleared or approved by the U.S. Food and Drug Administration. The FDA has determined that such clearance or approval is not necessary. The above immunohistochemical/dualISH markers are ordered and reviewed by the Pathologist. INTERPRETATION: A. Antral biopsy: Negative for Helicobacter pylori organisms. AM:rory 11/07/2022
--- NOTE | 2022-11-05 11:28 | OP.EGD_ITS ---
Patient Name: Alison Tam Procedure Date: 11/05/2022 10:10 AM Date of : 1950 Age: 72 Procedure: Upper GI endoscopy Indications: Iron deficiency anemia Providers: Tyra Choudhury MD Medicines: Monitored Anesthesia Care Patient Profile: This is a 72 year old female. Complications: No immediate complications. Procedure: Pre-Anesthesia Assessment: - Prior to the procedure, a History and Physical was performed, and patient medications and allergies were reviewed. The patient's tolerance of previous anesthesia was also reviewed. The risks and benefits of the procedure and the sedation options and risks were discussed with the patient. All questions were answered, and informed consent was obtained. Prior Anticoagulants: The patient has taken Plavix (clopidogrel), last dose was 1 day prior to procedure. ASA Grade Assessment: Per anesthesia. After reviewing the risks and benefits, the patient was deemed in satisfactory condition to undergo the procedure. After obtaining informed consent, the endoscope was passed under direct vision. Throughout the procedure, the patient's blood pressure, pulse, and oxygen saturations were monitored continuously. The pediatric colonoscope was introduced through the mouth, and advanced to the second part of duodenum. The upper GI endoscopy was accomplished without difficulty. The patient tolerated the procedure well. Scope In: 10:21:55 AM Scope Out: 10:27:14 AM Total Procedure Duration Time 0 hours 5 minutes 19 seconds Findings: The Z-line was regular and was found 40 cm from the incisors. The examined duodenum was normal. Multiple dispersed, less than 1 mm bleeding erosions were found in the entire examined stomach. There were stigmata of recent bleeding. Biopsies were taken with a cold forceps for histology. Biopsies were taken with a cold forceps for Helicobacter pylori cultures. The cardia and gastric fundus were normal on retroflexion. Impression: - Z-line regular, 40 cm from the incisors. - Normal examined duodenum. - Bleeding erosive gastropathy. Biopsied. Recommendation: - Await pathology results. - Use Protonix (pantoprazole) 40 mg PO daily. - Use sucralfate tablets 1 gram PO QID for 1 month. - Continue present medications. Procedure Code(s): --- Professional --- 75800, Esophagogastroduodenoscopy, flexible, transoral; with biopsy, single or multiple Diagnosis Code(s): --- Professional --- K31.89, Other diseases of stomach and duodenum K92.2, Gastrointestinal hemorrhage, unspecified D50.9, Iron deficiency anemia, unspecified CPT copyright 2017 [employer]. All rights reserved. The codes documented in this report are preliminary and upon spline rolling machine job setter review may be revised to meet current compliance requirements. MD Tyra Gentile MD 11/05/2022 11:27:59 AM This report has been signed electronically. Number of Addenda: 0 Note Initiated On: 11/05/2022 10:10 AM
--- NOTE | 2022-11-05 11:29 | OP.CCLET_ITS ---
11/05/2022 Elizabeth Tanner [place] [id number] [facility] [address] Re : Upper GI endoscopy procedure for Alison Tam Dear Dr. Tanner This procedure was performed on Saturday, November 05, 2022. My impressions and recommendations are as follows: Impressions : - Z-line regular, 40 cm from the incisors. - Normal examined duodenum. - Bleeding erosive gastropathy. Biopsied. Recommendations : - Await pathology results. - Use Protonix (pantoprazole) 40 mg PO daily. - Use sucralfate tablets 1 gram PO QID for 1 month. - Continue present medications. My findings are described in the full procedure note, which is enclosed. If I can be of further assistance, please feel free to contact me at Doctor phone number(s): , Work: . Sincerely, MD Tyra Gentile MD 11/05/2022 11:27:59 AM This report has been signed electronically.
--- NOTE | 2022-11-05 11:34 | OP.COLON_ITS ---
Patient Name: Alison Tam Procedure Date: 11/05/2022 10:27 AM Date of : 1950 Age: 72 Procedure: Colonoscopy Indications: Iron deficiency anemia Providers: Tyra Choudhury MD Medicines: Monitored Anesthesia Care Patient Profile: This is a 72 year old female. Last Colonoscopy: none. The patient's first colonoscopy is today. Complications: No immediate complications. Procedure: Pre-Anesthesia Assessment: - Prior to the procedure, a History and Physical was performed, and patient medications and allergies were reviewed. The patient's tolerance of previous anesthesia was also reviewed. The risks and benefits of the procedure and the sedation options and risks were discussed with the patient. All questions were answered, and informed consent was obtained. Prior Anticoagulants: The patient has taken Plavix (clopidogrel), last dose was 1 day prior to procedure. ASA Grade Assessment: Per anesthesia. After reviewing the risks and benefits, the patient was deemed in satisfactory condition to undergo the procedure. After I obtained informed consent, the scope was passed under direct vision. Throughout the procedure, the patient's blood pressure, pulse, and oxygen saturations were monitored continuously. The pediatric colonoscope was introduced through the anus and advanced to the ascending colon. The colonoscopy was performed with difficulty due to significant looping and a tortuous colon. Successful completion of the procedure was aided by applying abdominal pressure. The patient tolerated the procedure well. The quality of the bowel preparation was good. Scope In: 10:27:58 AM Scope Out: 11:22:55 AM Total Procedure Duration Time 0 hours 54 minutes 57 seconds Findings: Hemorrhoids were found on perianal exam. Three semi-pedunculated polyps were found in the descending colon and transverse colon. The polyps were 4 to 6 mm in size. These polyps were removed with a hot snare. Resection and retrieval were complete. Impression: - Hemorrhoids found on perianal exam. - Three 4 to 6 mm polyps in the descending colon and in the transverse colon, removed with a hot snare. Resected and retrieved. Recommendation: - Await pathology results. - Repeat colonoscopy at appointment to be scheduled because the examination was incomplete. - Continue present medications. Procedure Code(s): --- Professional --- 53169, 52, Colonoscopy, flexible; with removal of tumor(s), polyp(s), or other lesion(s) by snare technique Diagnosis Code(s): --- Professional --- K64.9, Unspecified hemorrhoids D12.3, Benign neoplasm of transverse colon (hepatic flexure or splenic flexure) D12.4, Benign neoplasm of descending colon D50.9, Iron deficiency anemia, unspecified CPT copyright 2017 [employer]. All rights reserved. The codes documented in this report are preliminary and upon clinical coder review may be revised to meet current compliance requirements. MD Tyra Gentile MD 11/05/2022 11:33:52 AM This report has been signed electronically. Number of Addenda: 0 Note Initiated On: 11/05/2022 10:27 AM
--- NOTE | 2022-11-05 11:35 | OP.CCLET_ITS ---
11/05/2022 Elizabeth Tanner [place] [id number] [address] Re : Colonoscopy procedure for Alison Anel Dear Dr. Tanner This procedure was performed on Saturday, November 05, 2022. My impressions and recommendations are as follows: Impressions : - Hemorrhoids found on perianal exam. - Three 4 to 6 mm polyps in the descending colon and in the transverse colon, removed with a hot snare. Resected and retrieved. Recommendations : - Await pathology results. - Repeat colonoscopy at appointment to be scheduled because the examination was incomplete. - Continue present medications. My findings are described in the full procedure note, which is enclosed. If I can be of further assistance, please feel free to contact me at Doctor phone number(s): , Work: . Sincerely, MD Tyra Gentile MD 11/05/2022 11:33:52 AM This report has been signed electronically.
== END 2022-11-05 12:29 | disposition home or self-care (01) ==
LOC: EN 09:43 → AC 09:43
PROVIDERS: PCP Family Medicine; Referring Provider Family Medicine; Visit Provider Surgery
PROC: 0DJD8ZZ Inspection of Lower Intestinal Tract, Via Natural or Artificial Opening Endoscopic (ICD-10-PCS; CPT 45378; principal; 2022-11-05 10:40)
DX: D12.3 Benign neoplasm of transverse colon (principal); D12.4 Benign neoplasm of descending colon; K64.9 Unspecified hemorrhoids; D50.9 Iron deficiency anemia, unspecified; K31.89 Other diseases of stomach and duodenum; F17.210 Nicotine dependence, cigarettes, uncomplicated; Z79.82 Long term (current) use of aspirin; Z79.899 Other long term (current) drug therapy; Z79.01 Long term (current) use of anticoagulants
CPT/HCPCS: 45385; 43239; 88305; 88342; J7120; J2405

== ENCOUNTER → 2022-12-15 | Outpatient (CLI) | payer MEDICARE, OTHER, SELFPAY ==
[2022-12-15 12:44] LABS: Absolute Lymphocyte Count 1.53 X10^3/uL (0.83-4.51); Absolute Neutrophil Count 5.7 X10^3/uL (2.0-7.7); Basophil# 0.08 X10^3/uL; Eosinophil# 0.09 X10^3/uL; Eosinophils% 1.1 % (0-5); Hematocrit 26.5 % (37-47); Hemoglobin 7.5 g/dL (12.0-15.0); Lymphocyte # 1.53 X10^3/ul (0.83-4.51); Lymphocyte % 18.8 % (19-41); Mean Corp Hgb Conc 28.3 g/dL (32-36); Mean Corpuscular Hgb 23.9 pg (27.0-32.0); Mean Corpuscular Volume 84.4 fL (81-99); Mean Platelet Vol. 8.6 fl (6.2-12.0); Monocyte# 0.67 X10^3/uL; Monocyte% 8.2 % (0-10); NRBC Flagged by Analyzer 0 % (0-5); Neutrophil # 5.73 X10^3/uL (2.7-7.7); Neutrophil % 70.5 % (47-70); Platelet Count 551 K/mm3 (150-450); RBC Distribution Width CV 18.8 % (11.6-14.6); Red Blood Count 3.14 M/mm3 (4.2-5.4); White Blood Count 8.1 K/mm3 (4.4-11.0)
[2022-12-15 13:48] LABS: Ferritin 34 ng/mL (8-252); Iron 42 ug/dL (50-170); Iron Binding Capacity,Total 443 ug/dL (250-450); PERCENT IRON SATURATION 9.5 % (15.0-55.0)
== END | disposition home or self-care (01) ==
LOC: BFHLAB 09:33
PROVIDERS: PCP Family Medicine; Visit Provider Family Medicine
DX: D64.9 Anemia, unspecified (principal); K25.4 Chronic or unspecified gastric ulcer with hemorrhage
CPT/HCPCS: 36415; 82728; 83540; 83550; 85025

== ENCOUNTER 2022-12-18 12:24 | Emergency (ER) | payer MEDICARE, OTHER, SELFPAY ==
[2022-12-18 12:25] VITALS: BP 149/63; PULSE 102; RESP 16; TEMP 36.4; O2SAT 99; BMI 21.8
--- NOTE | 2022-12-18 13:09 | CT_ITS ---
STUDY: CT ABDOMEN AND PELVIS WITH CONTRAST REASON FOR EXAM: Female, 72 years old. Abdominal pain, low iron RADIATION DOSAGE (If Supplied By Facility): CTDIvol = ( 12.36 ) mGy, DLP = ( 574.81 ) mGycm TECHNIQUE: Transaxial images were obtained from the dome of the diaphragm to the symphysis pubis without oral contrast. IV 100mL Isovue-300 was administered. Sagittal and coronal images were reconstructed. Individualized dose optimization techniques were used for this CT. COMPARISON: None. FINDINGS: There is a small left pleural effusion with bibasilar atelectasis more prominent at the left lung base. Coronary artery calcification. Minimal degree of anterior pericardial thickening. There is decreased attenuation of the liver consistent with steatosis. There is evidence of a 1.1 cm cyst within the medial aspect of the left lobe. Normal gallbladder and extrahepatic biliary system. Normal spleen. Normal pancreas. Normal bilateral adrenal glands. Normal right kidney. There is a 2.1 cm cyst in the posterior lateral inferior aspect of the left kidney. Normal visualized stomach. Normal small intestine. There are multiple colonic diverticula consistent with diverticulosis. The appendix is visualized and appears normal. There is diffuse atherosclerotic calcification of the abdominal aorta, without a demonstrated aneurysm. Normal inferior vena cava. Normal retroperitoneum. Distended urinary bladder. Normal abdominal wall. Increased lordosis. Marked degree of disc space narrowing and disc degeneration with subchondral sclerosis at the T12-L1 level. This space narrowing at the L1-L2 and L5-S1 levels as well. CT/Abdomen/Pelvis W IV Cont ONLY IMPRESSION: Bilateral pleural effusions worse on the left side with bibasilar atelectasis more prominent at the left lung base. Fatty infiltration of the liver. Small cyst in the left lobe of the liver. Small cyst in the left kidney. Electronically Signed: Jasper Ratliff MD at 15:04 EST ,
[2022-12-18 13:25] LABS: Absolute Lymphocyte Count 1.31 X10^3/uL (0.83-4.51); Absolute Neutrophil Count 5.4 X10^3/uL (2.0-7.7); Basophil# 0.06 X10^3/uL; Basophil% 0.8 % (0-1); Eosinophil# 0.08 X10^3/uL; Eosinophils% 1.1 % (0-5); Hematocrit 25.7 % (37-47); Hemoglobin 7.4 g/dL (12.0-15.0); Lymphocyte # 1.31 X10^3/ul (0.83-4.51); Lymphocyte % 17.8 % (19-41); Mean Corp Hgb Conc 28.8 g/dL (32-36); Mean Corpuscular Hgb 23.3 pg (27.0-32.0); Mean Corpuscular Volume 81.1 fL (81-99); Mean Platelet Vol. 8.4 fl (6.2-12.0); Monocyte% 6.8 % (0-10); NRBC Flagged by Analyzer 0 % (0-5); Neutrophil % 73.1 % (47-70); Platelet Count 552 K/mm3 (150-450); RBC Distribution Width CV 18.3 % (11.6-14.6); RBC Distribution Width SD 54.3 fl (35.1-43.9); Red Blood Count 3.17 M/mm3 (4.2-5.4); White Blood Count 7.4 K/mm3 (4.4-11.0)
[2022-12-18] MEDS: 0.9% Normal Saline 1,000 ML 1000 ML IV (13:27)
--- NOTE | 2022-12-18 14:11 | EX.ED.DYSGE1 ---
HPI History of Present Illness Chief Complaint: Abn Labs Informant: patient Narrative Narrative: Patient is a 72-year-old female with history of anemia of uncertain etiology presenting to the ER for iron transfusion. Apparently patient was informed by her PCP to come to the ER for an iron transfusion based on recent blood work. Patient has been having issues with anemia and has had endoscopy by Dr. Choudhury. She was put on Protonix. She did have polyps/cautery and her EGD as well as colonoscopy but her colonoscopy was incomplete secondary to a twisted her colon. She notes that she has been constipated lately and has been taking her iron supplements. She also reports that over the past few days she has had episodes of left-sided neck pain that goes into her arm, sensation of heart racing, sweating and then vomiting. She states this did not occur today. She denies any change in the color of her stool. Denies any abdominal pain but does feel constipated/bloated. Currently denies any chest pain but notes that she does get very winded with her daily activities. Denies any acute change in this. Does not know why she is anemic. States she is not been referred to hematology. Notes that a lot of her symptoms started after she had what sounds like vascular surgery of her right lower leg with Dr. White. Patient continues to smoke cigarettes. She is on Plavix. [facility] Medical History Alcohol abuse Anxiety Easy bruising Hearing loss (~1952) Heartburn Low iron Postmenopausal (~2018) Smoker Tobacco dependence (~1997) Wears dentures Wears hearing aid Home Medications aspirin 81 mg tablet 81 mg PO DAILY 08/26/22 [History Last Taken Unknown] clopidogrel 75 mg tablet (Plavix) 75 mg PO DAILY #90 tabs 10/02/22 [Rx Last Taken Unknown] pantoprazole 40 mg tablet,delayed release 40 mg PO DAILY #30 tabs 11/05/22 [Rx Last Taken Unknown] sucralfate 1 gram tablet 1 g PO 4X/DAY #120 tabs 11/05/22 [Rx Last Taken Unknown] cholecalciferol (vitamin D3) 50 mcg (2,000 unit) capsule 50 mcg PO DAILY 12/02/22 [History Last Taken Unknown] ferrous fumarate 324 mg (106 mg iron) tablet (Ferrocite) 324 mg PO DAILY 12/02/22 [History Last Taken Unknown] gabapentin 100 mg capsule 100 mg PO TID #90 caps 12/02/22 [Rx Last Taken Unknown] furosemide 20 mg tablet (Lasix) 20 mg PO DAILY #5 tabs 12/18/22 [Rx Last Taken Unknown] lactulose 10 gram/15 mL oral solution 10 g (15 mL) PO DAILY PRN constipation #237 mL 12/18/22 [Rx Last Taken Unknown] Allergy/AdvReac Type Severity Reaction Status Date / Time No Known Allergies Allergy Verified 12/18/22 12:28 Family History Father Myocardial infarction at 62 yrs old Grandmother Diabetes Sister Lung cancer Mother Cancer Other Alcohol abuse Hypertension Surgical History History of AAA (abdominal aortic aneurysm) repair Social History Smoking Status: Current every day smoker tobacco type: cigarettes ROS ROS ED Constitutional Constitutional ED: Denies chills or fever(s) Eyes Eyes: Denies change in vision ENT ENT ED: Denies sore throat Cardiovascular Cardiovascular: Denies chest pain or palpitations Respiratory/Chest Respiratory/Chest: Reports dyspnea and dyspnea on exertion; Denies cough Gastrointestinal Gastrointestinal: Reports constipation and vomiting; Denies abdominal pain Musculoskeletal Musculoskeletal: Denies arthralgias or myalgias Integumentary Denies rash Psychiatric Psychiatric: Denies anxiety Hematologic/Lymphatic Hematologic/Lymphatic: Denies easy bleeding or easy bruising EXAM Physical Exam Const Vital Signs: 12/18/22 12:25 12/18/22 12:36 12/18/22 15:09 Temperature 97.6 F L Temperature Source Temporal Pulse Rate 102 H Respiratory Rate 16 Respiratory Effort Normal Non-Labored Respiratory Pattern Normal Blood Pressure 149/63 H 141/71 H Blood Pressure Mean 91 94 Pulse Ox 99 Oxygen Delivery Method Room Air Positive well nourished and well developed General Appearance ED: well developed, NAD and pallor HEENT Reports moist mucous membranes Eyes PERRL and EOMs intact bilaterally General Eye ED: Yes pale conjunctiva Neck supple and no JVD Chest Wall inspection of chest normal and palpation of chest normal Resp normal respiratory effort Resp Narrative: Mildly diminished breath sounds at the bases bilaterally Auscultation: Negative for rhonchi or wheezes GI normal to inspection, nondistended, normoactive bowel sounds and non-tender Palpation: Negative for tender or guarding Extremity normal to inspection General Extremety ED: Negative for edema or tenderness General Extremity: Negative for edema Neuro oriented x3 Sensorium / Orientation: alert Motor Exam: Negative for general weakness Psych mental status grossly normal Skin no rashes or lesions noted General Skin Exam: pallor MDM MDM MDM Narrative Medical decision making narrative: Patient initially presented to the emergency room thinking that she was supposed to come here for an iron transfusion. Patient was explained that the ER does not offer iron transfusions. However on examination patient reports that she has had this chronic anemia and is also having this worsening constipation. She not had a bowel movement 2 days and she has been having these intermittent episodes of nausea, vomiting and left-sided neck and chest wall pain. She also states that she has been very dyspneic on exertion and the other day while she was at [facility] she had to leave and sit in the car because she could not walk around due to her shortness of breath. Patient's all signs are significant for mild tachycardia. A repeat CBC checked which shows a stable anemia with a hemoglobin of 7.9. Her CMP is largely unremarkable. EKG does show T wave inversions in V3 through V6 with no reciprocal changes. There is also less pronounced T wave inversions in 3 and aVF. No prior EKG available for comparison. Given her symptoms I did add on a troponin which is normal at 9. She does not have any active chest pain I do not think these changes are consistent with acute ischemia. She does have history of tobacco use is peripheral vascular disease so she likely does have underlying coronary artery disease as well. CT of the abdomen and pelvis is obtained due to patient's constipation and vomiting to rule out obstruction. It does not show any acute intra-abdominal pathology but does show bilateral pleural effusions worse on the left side. BNP is normal. Patient clinically does not appear fluid overloaded or have physical exam signs of heart failure. She is ambulated in the emergency room and does not desaturate and tolerates it well. Case discussed with her PCPs office who specified that they did not send her in for an iron transfusion and that was a miscommunication on the family side. I did inform them of her abnormal EKG as well as pleural effusions and recommend further outpatient follow-up for that. The office will be sent my note as well. This will get relayed to her primary physician, Dr. Esparza. In addition patient will continue to follow-up with surgery as well as GI outpatient. PCP will continue to work outpatient to arrange iron transfusion. Patient is given return precautions. She verbalizes agreement understands plan. She ambulates easily throughout the ER. Discharged home in stable condition. Patient be discharged with a short course of Lasix for her pleural effusions, dyspnea on exertion as well as a prescription for lactulose as the MiraLAX she is taking is not helping and there is currently a national shortage of magnesium citrate. History & Record Review Discussion w/independent historian: Family ([id number] provides further history, see MDM) Lab Data Attestation: I reviewed the patient's lab results. Labs: Laboratory Results - last 24 hr 12/18/22 12/18/22 12/18/22 13:17 13:17 13:45 WBC 7.4 RBC 3.17 L Hgb 7.4 L Hct 25.7 L MCV 81.1 MCH 23.3 L MCHC 28.8 L RDW Std Deviation 54.3 H RDW Coeff of Edwardo 18.3 H Plt Count 552 H MPV 8.4 Immature Gran % (Auto) 0.400 Neut % (Auto) 73.1 H Lymph % (Auto) 17.8 L Orange % (Auto) 6.8 Eos % (Auto) 1.1 Baso % (Auto) 0.8 Absolute Neuts (auto) 5.4 Absolute Lymphs (auto) 1.31 Nucleated RBC % 0 Sodium 136 Potassium 4.6 Chloride 108 H Carbon Dioxide 23.0 Anion Gap 5 BUN 7 Creatinine 0.70 Estim Creat Clear Calc 57.81 Est GFR (MDRD) Af Amer 105 Est GFR (MDRD) Non-Af 87 BUN/Creatinine Ratio 10.0 Glucose 103 Calcium 9.0 Total Bilirubin 0.20 AST 41 H ALT 24 Alkaline Phosphatase 82 Troponin I High Sens B-Natriuretic Peptide 94.4 Total Protein 7.1 Albumin 3.1 L Globulin 4.0 Albumin/Globulin Ratio 0.8 L Lipase 83 12/18/22 15:07 WBC RBC Hgb Hct MCV MCH MCHC RDW Std Deviation RDW Coeff of Edwardo Plt Count MPV Immature Gran % (Auto) Neut % (Auto) Lymph % (Auto) Orange % (Auto) Eos % (Auto) Baso % (Auto) Absolute Neuts (auto) Absolute Lymphs (auto) Nucleated RBC % Sodium Potassium Chloride Carbon Dioxide Anion Gap BUN Creatinine Estim Creat Clear Calc Est GFR (MDRD) Af Amer Est GFR (MDRD) Non-Af BUN/Creatinine Ratio Glucose Calcium Total Bilirubin AST ALT Alkaline Phosphatase Troponin I High Sens 9 B-Natriuretic Peptide Total Protein Albumin Globulin Albumin/Globulin Ratio Lipase Radiography Diagnostic Testing: Clinical Impression(s) from Imaging Studies Abdomen/Pelvis CT 12/18/22 13:09 IMPRESSION: Bilateral pleural effusions worse on the left side with bibasilar atelectasis more prominent at the left lung base. Fatty infiltration of the liver. Small cyst in the left lobe of the liver. Small cyst in the left kidney. Electronically Signed: Jasper Ratliff MD at 15:04 EST , Rhythm Strip Rate: 89 Ectopy: None Management Discussion w/another healthcare provider: PCP (see MDM) Discharge Plan Triage Chief Complaint: Abn Labs ED Provider: Cristal Arcos Dx/Rx/DC Orders Clinical Impression: MCKEON (dyspnea on exertion), Anemia, Pleural effusion, bilateral, Constipation Instructions: ED Constipation (Adult), ED Pleural Effusion Prescriptions: New furosemide [Lasix] 20 mg tablet 20 mg PO DAILY Qty: 5 0RF lactulose 10 gram/15 mL solution 10 g PO DAILY PRN (Reason: constipation) Qty: 237 0RF No Action aspirin 81 mg tablet 81 mg PO DAILY gabapentin 100 mg capsule 100 mg PO TID Qty: 90 0RF sucralfate [sucralfate] 1 gram tablet 1 g PO 4X/DAY Qty: 120 0RF Rx Instructions: Take 1 hour before meals and at bedtime pantoprazole 40 mg tablet,delayed release (DR/EC) 40 mg PO DAILY Qty: 30 3RF clopidogrel [Plavix] 75 mg tablet 75 mg PO DAILY Qty: 90 2RF Primary Care Provider: Elizabeth Tanner Referrals: Elizabeth Tanner MD [Primary Care Provider] - Activity Restrictions/Additional Instructions: Your CT did not show any blockage but did show fluid on the lungs which is why the lasix is prescribed. You have been given a paper prescription for constipation if the miralax sufficient. Continue to follow-up with the GI specialist as well as your primary care doctor. Please call your primary care doctor today or tomorrow to arrange close outpatient follow-up. Your EKG did show some abnormalities that need further outpatient follow-up. Disposition Disposition: Home, Self Care
[2022-12-18 14:13] LABS: ALB/GLOB Ratio 0.8 RATIO (0.9-2.4); AST(SGOT) 41 U/L (15-37); Alanine Aminotransfer ALT/SGPT 24 U/L (13-56); Albumin, Serum 3.1 g/dL (3.2-5.0); Alkaline Phosphatase 82 U/L (45-117); Anion Gap 5 (5-15); BUN 7 mg/dL (7-18); Chloride 108 mmol/L (98-107); EST Glomerular Filtration Rate 87 mL/min (>60); Est Glom Filt Rate - Afr Amer 105 mL/min (>60); Estimated Creatinine Clearance 57.81 ml/min; Glucose 103 mg/dL (74-106); Lipase 83 U/L (73-393); Potassium 4.6 mmol/L (3.5-5.1); Protein, Total 7.1 g/dL (6.4-8.2); Sodium Level 136 mmol/L (136-145)
[2022-12-18 15:09] VITALS: BP 141/71
[2022-12-18 15:40] LABS: Troponin-I HS 9 pg/mL (3.0-54.0)
[2022-12-18 16:20] LABS: BNP,B-Type NATRIURETIC PEPTIDE 94.4 pg/mL (0-100)
[2022-12-18 16:26] VITALS: O2SAT 94
== END 2022-12-18 17:04 | disposition home or self-care (01) ==
PROVIDERS: Emergency Provider Emergency Medicine; PCP Family Medicine; Visit Provider Emergency Medicine
DX: D64.9 Anemia, unspecified (principal); R06.09 Other forms of dyspnea; J90 Pleural effusion, not elsewhere classified; K59.00 Constipation, unspecified; F41.9 Anxiety disorder, unspecified; R12 Heartburn; F17.210 Nicotine dependence, cigarettes, uncomplicated; Z78.0 Asymptomatic menopausal state; Z79.899 Other long term (current) drug therapy; Z79.82 Long term (current) use of aspirin
CPT/HCPCS: 74177; 80053; 83690; 83880; 84484; 85025; 93005; 99283; J7030; Q9967; A4216

== ENCOUNTER → 2022-12-25 | Outpatient (CLI) | payer MEDICARE, OTHER, SELFPAY ==
[2022-12-25 09:44] VITALS: BP 147/89; PULSE 108; RESP 16; TEMP 36.4
[2022-12-25] MEDS: Ferric Carboxymaltose (Injectafer) 750 MG in 0.9% NaCl 250 ML 795 MG IV (09:47)
[2022-12-25 10:51] VITALS: BP 147/70; PULSE 82; RESP 16; TEMP 36.1; O2SAT 100
== END | disposition home or self-care (01) ==
LOC: MEDOUTP 09:25
PROVIDERS: PCP Family Medicine; Referring Provider Family Medicine; Visit Provider Family Medicine
DX: D50.9 Iron deficiency anemia, unspecified (principal)
CPT/HCPCS: 96365; J1439; J7050; A4216

== ENCOUNTER → 2022-12-30 | Outpatient (CLI) | payer MEDICARE, OTHER, SELFPAY ==
[2022-12-30 11:22] LABS: Hematocrit 29.6 % (37-47); Hemoglobin 8.5 g/dL (12.0-15.0)
== END | disposition home or self-care (01) ==
LOC: PAVLAB 10:52
PROVIDERS: PCP Family Medicine; Referring Provider Surgery; Visit Provider Surgery
DX: D64.9 Anemia, unspecified (principal)
CPT/HCPCS: 36415; 85014; 85018

== ENCOUNTER → 2022-12-31 | Outpatient (CLI) | payer MEDICARE, OTHER, SELFPAY ==
--- NOTE | 2022-12-31 16:01 | NEURO ---
NCS and/or EMG Patient Report Ordering Doctor: Elizabeth Tanner DATE OF SERVICE: 12/31/22 Alison presents for electrodiagnostic testing of the lower limbs she reports muscle cramping and numbness, mainly in the right leg. She does have intermittent pain and numbness in the left foot. This is an abnormal study in the lower limbs Electrodiagnostic findings right peroneal motor nerve demonstrates prolonged distal latency with reduced amplitude and reduced conduction velocity. Left peroneal motor noted nerve demonstrates normal distal latency with normal amplitude and conduction velocity. Right tibial motor nerve demonstrates decreased amplitude. There is normal distal latency and conduction velocity. Left tibial motor response is within normal limits. Absent right sural and superficial peroneal responses. Needle EMG testing reveals 1+ fibrillations in the left anterior tibialis, 1+ complex repetitive discharges in the left peroneus longus and 1+ fibrillations in the left lumbar paraspinals. There is a decreased recruitment pattern in the right anterior tibialis. Electrodiagnostic Impression: This is an abnormal study in the lower limbs. 1. 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 2. 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 3. Electrodiagnostic evidence suggestive of an acute on chronic left L5 radiculopathy. Consider correlation with lumbar spine imaging.
== END | disposition home or self-care (01) ==
LOC: PSN 07:05
PROVIDERS: PCP Family Medicine; Referring Provider Family Medicine; Visit Provider Family Medicine
DX: R20.2 Paresthesia of skin (principal)
CPT/HCPCS: 95886; 95913

== ENCOUNTER → 2023-01-12 | Outpatient (CLI) | payer MEDICARE, OTHER, SELFPAY ==
--- NOTE | 2023-01-12 08:30 | RAD_ITS ---
INDICATION: constipation. Incomplete colonoscopy. EXAMINATION/TECHNIQUE: Single contrast Gastrograffin enema was performed. Total Fluoroscopic Time: 52 seconds AND number of Fluoroscopic Images: 5 OR Radiation dosage index: 21.36 mGy COMPARISON: None. 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 Calcified phleboliths are seen in the pelvis. Gastrografin was introduced retrograde through the colon. The entire colon was opacified. Scattered residual fecal material is seen. There is redundancy of the sigmoid colon. No evidence of obstruction to the retrograde or antegrade flow of contrast. RAD/Barium Enema No Air Cont IMPRESSION: Redundancy of the sigmoid colon. No evidence of mass lesion or obstruction. Electronically Signed: Jasper Ratliff MD at 13:52 EDT ,
== END | disposition home or self-care (01) ==
LOC: RAD 08:27
PROVIDERS: PCP Family Medicine; Referring Provider Family Medicine; Visit Provider Surgery
DX: K59.00 Constipation, unspecified (principal)
CPT/HCPCS: 74270

== ENCOUNTER → 2023-01-20 | Outpatient (CLI) | payer MEDICARE, OTHER, SELFPAY ==
--- NOTE | 2023-01-20 13:16 | RAD_ITS ---
INDICATION: Pleural effusion EXAMINATION/TECHNIQUE: X-RAY - XR Chest 2 Views COMPARISON: None. FINDINGS: The lungs are clear. Tortuous and calcified thoracic aorta. The heart is not enlarged. No pleural effusion or pneumothorax. Degenerative changes of the thoracic spine. RAD/Chest PA and Lateral IMPRESSION: No acute radiographic abnormalities. Electronically Signed: Tk Apple MD at 23:13 EDT ,
[2023-01-20 15:22] LABS: Absolute Lymphocyte Count 1.81 X10^3/uL (0.83-4.51); Absolute Neutrophil Count 7.1 X10^3/uL (2.0-7.7); Basophil# 0.06 X10^3/uL; Basophil% 0.6 % (0-1); Eosinophil# 0.07 X10^3/uL; Eosinophils% 0.7 % (0-5); Hematocrit 32.1 % (37-47); Hemoglobin 9.5 g/dL (12.0-15.0); Lymphocyte # 1.81 X10^3/ul (0.83-4.51); Lymphocyte % 18.8 % (19-41); Mean Corp Hgb Conc 29.6 g/dL (32-36); Mean Corpuscular Hgb 26.4 pg (27.0-32.0); Mean Corpuscular Volume 89.2 fL (81-99); Monocyte# 0.61 X10^3/uL; Monocyte% 6.3 % (0-10); NRBC Flagged by Analyzer 0 % (0-5); Neutrophil # 7.05 X10^3/uL (2.7-7.7); Neutrophil % 73.2 % (47-70); POSITIVE MORPHOLOGY YES; Platelet Count 354 K/mm3 (150-450); RBC Distribution Width CV 22.3 % (11.6-14.6); White Blood Count 9.6 K/mm3 (4.4-11.0)
[2023-01-20 15:26] LABS: Differential Indicated SCAN CRITERIA MET
[2023-01-20 15:43] LABS: Ferritin 219 ng/mL (8-252)
[2023-01-20 15:44] LABS: Vitamin B12 566 pg/mL (211-911); Vitamin D,25 Hydroxy 31.1 ng/mL
[2023-01-20 15:51] LABS: Differential Comment SCANNED
== END | disposition home or self-care (01) ==
LOC: MTLAB 13:15
PROVIDERS: PCP Family Medicine; Referring Provider Family Medicine; Visit Provider Family Medicine
DX: J90 Pleural effusion, not elsewhere classified (principal); D64.9 Anemia, unspecified; E55.9 Vitamin D deficiency, unspecified
CPT/HCPCS: 36415; 71046; 82306; 82607; 82728; 85025

== ENCOUNTER → 2023-02-02 | Outpatient (CLI) | payer MEDICARE, OTHER, SELFPAY ==
--- NOTE | 2023-02-02 08:44 | MRI_ITS ---
HISTORY: ABNORMAL NERVE CONDUCTION STUDY. Left leg issues, foot drop, numbness. TECHNIQUE: Multiplanar and multisequence MR images of the lumbar spine were obtained without intravenous contrast. 159 images. COMPARISON: CT 12/18/2022. FINDINGS: VERTEBRAE: Vertebral body heights maintained. Degenerative bone marrow endplate changes of T10-11, T11-12, T12-L1, L1-2, and L4-5. ALIGNMENT: 2 mm retrolisthesis of L1-2. 2 mm anterolisthesis of L4-5. Mild dextroscoliosis. CONUS: Normal morphology and position of the conus medullaris at L1-2. INTERVERTEBRAL DISCS: T12-L1, L1-2: Posterior disc bulge osteophyte complexes with facet arthropathy. No significant central canal stenosis. Mild bilateral foraminal narrowing. L2-3: No significant posterior disc protrusion, central canal stenosis, or foraminal narrowing. L3-4: Mild posterior disc bulge osteophyte complex with facet arthropathy resulting in minimal narrowing of the thecal sac and no significant foraminal narrowing. L4-5: Mild disc bulge with facet arthropathy resulting in minimal narrowing of the thecal sac and no significant foraminal narrowing. L5-S1: Mild disc bulge with facet arthropathy resulting in no significant central canal stenosis. Mild right foraminal narrowing with abutment of the right L5 nerve root. 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 MRI/Spine Lumbar (Routine) IMPRESSION: Mild multilevel degenerative disc disease without significant lumbar spinal canal stenosis. Mild foraminal narrowing as above. Mild scoliosis. Chronic mild retrolisthesis of L1-2 and anterolisthesis of L4-5. Electronically Signed: Neena Luo MD at 15:57 EDT ,
== END | disposition home or self-care (01) ==
LOC: MRI 08:18
PROVIDERS: PCP Family Medicine; Referring Provider Family Medicine; Visit Provider Family Medicine
DX: R94.131 Abnormal electromyogram [EMG] (principal)
CPT/HCPCS: 72148

== ENCOUNTER → 2023-02-26 | Outpatient (CLI) | payer MEDICARE, OTHER, SELFPAY ==
[2023-02-26 18:29] LABS: Absolute Lymphocyte Count 1.66 X10^3/uL (0.83-4.51); Absolute Neutrophil Count 6.8 X10^3/uL (2.0-7.7); Basophil# 0.08 X10^3/uL; Basophil% 0.9 % (0-1); Eosinophil# 0.14 X10^3/uL; Eosinophils% 1.5 % (0-5); Hematocrit 27.9 % (37-47); Hemoglobin 8.4 g/dL (12.0-15.0); Lymphocyte # 1.66 X10^3/ul (0.83-4.51); Lymphocyte % 17.7 % (19-41); Mean Corp Hgb Conc 30.1 g/dL (32-36); Mean Corpuscular Hgb 25.9 pg (27.0-32.0); Mean Corpuscular Volume 86.1 fL (81-99); Mean Platelet Vol. 8.5 fl (6.2-12.0); Monocyte# 0.71 X10^3/uL; Monocyte% 7.6 % (0-10); NRBC Flagged by Analyzer 0 % (0-5); Neutrophil # 6.76 X10^3/uL (2.7-7.7); Platelet Count 562 K/mm3 (150-450); RBC Distribution Width CV 19.1 % (11.6-14.6); RBC Distribution Width SD 59.4 fl (35.1-43.9); Red Blood Count 3.24 M/mm3 (4.2-5.4); White Blood Count 9.4 K/mm3 (4.4-11.0)
[2023-02-26 18:50] LABS: Ferritin 42 ng/mL (8-252)
== END | disposition home or self-care (01) ==
LOC: BFHLAB 15:48
PROVIDERS: PCP Family Medicine; Referring Provider Family Medicine; Visit Provider Family Medicine
DX: D64.9 Anemia, unspecified (principal)
CPT/HCPCS: 36415; 82728; 85025

== ENCOUNTER → 2023-03-23 | Outpatient (CLI) | payer MEDICARE, OTHER, SELFPAY ==
--- NOTE | 2023-03-23 09:41 | ADUL_ITS ---
Reason For Study: S/P right popliteal artery angioplasty Right Velocities Ext. Iliac Artery, dist = 126.8 cm./sec. Common Femoral Artery, mid = 116.4 cm./sec. Supf Femoral Artery, prox = 113.1 cm./sec. Supf Femoral Artery, mid = 165.6 cm./sec. SFA mid/dist, 292 cm/sec. Supf Femoral Artery, dist. = 94.2 cm./sec. Profunda Femoral Artery = 71.1 cm./sec. Popliteal Artery, mid = 74.7 cm./sec. Post. Tibial Artery, prox = 33 cm./sec. Post. Tibial Artery, mid = 26.4 cm./sec. Post. Tibial Artery, dist = 14.1 cm./sec. Peroneal artery prox, No flow. Peroneal Artery, mid = 22.8 cm./sec. Peroneal Artery,dist = 31.7 cm./sec. Ant. Tibial Artery, prox = 57.5 cm./sec. Ant. Tibial Artery, mid = 53.8 cm./sec. Ant. Tibial Artery, dist = 58.5 cm./sec. Procedure Exam performed in department. VL/US Art Duplex Unilat Lower Ext Interpretation Summary Positive for stenosis >50% in the right superficial femoral artery Ordering Physician: Padma Magana Referring Physician: Elizabeth Tanner Performed By: Mala Lerma RVT
--- NOTE | 2023-03-23 09:41 | ART_ITS ---
Reason For Study: Claudication Procedure A bilateral lower extremity continuous wave Doppler with analog waveform analysis,segmental pressures,and ankle brachial indexes with exercise. Left Segmental Pressures Left brachial= 137mmHg. Left thigh = 161mmHg. Left calf = 124mmHg. Left posterior tibial artery = 131mmHg. Left dorsalis pedis artery = 137mmHg. Left digit = 103 mmHg. The left dorsalis pedis waveforms are triphasic. The left posterior tibial artery waveforms are triphasic. Right Segmental Pressures Right brachial= 141mmHg. Right thigh = 166mmHg. Right calf = 131mmHg. Right posterior tibial artery = 117mmHg. Right dorsalis pedis artery = 134mmHg. Right digit = 95 mmHg. The right dorsalis pedis waveforms are triphasic. The right posterior tibial artery waveforms are biphasic. Indices The right ankle brachial index by the dorsalis pedis is 0.95. The right ankle brachial index by the posterior tibial artery is 0.83. The right digital-brachial index is 0.67. The right post exercise ankle brachial index is 0.73. The left ankle brachial index by the dorsalis pedis is 0.97. The left ankle brachial index by the posterior tibial artery is 0.93. The left digital-brachial index is 0.73. The left post exercise ankle brachial index is 0.75. VL/Lower Ext Art Exam w/ Exercise Interpretation Summary Right SUSAN 0.95, mild arterial insufficiency. Doppler/PVR waveforms and segmenta l pressures reveal distal SFA/popliteal disease Right lower extremity with abnormal response to exercise and post exercise SUSAN in the moderate category. Left SUSAN 0.97, mild arterial insufficiency. Doppler/PVR waveforms and segmental pressures reveal distal SFA/popliteal disease Left lower extremity with abnormal response to exercise and post exercise SUSAN i n the moderate category. Ordering Physician: Padma Magana Referring Physician: Elizabeth Tanner Performed By: Mala Lerma RVT
== END | disposition home or self-care (01) ==
LOC: CVS 09:41
PROVIDERS: PCP Family Medicine; Referring Provider Physician Assistant; Visit Provider Physician Assistant
DX: I70.221 Atherosclerosis of native arteries of extremities with rest pain, right leg (principal); Z48.812 Encounter for surgical aftercare following surgery on the circulatory system
CPT/HCPCS: 93924; 93926

== ENCOUNTER → 2023-03-27 | Outpatient (CLI) | payer MEDICARE, OTHER, SELFPAY ==
[2023-03-27 12:07] LABS: Absolute Neutrophil Count 10.6 X10^3/uL (2.0-7.7); Basophil# 0.04 X10^3/uL; Basophil% 0.3 % (0-1); Eosinophil# 0.03 X10^3/uL; Eosinophils% 0.2 % (0-5); Hematocrit 26.7 % (37-47); Hemoglobin 8.1 g/dL (12.0-15.0); Lymphocyte % 10.5 % (19-41); Mean Corp Hgb Conc 30.3 g/dL (32-36); Mean Corpuscular Hgb 24.6 pg (27.0-32.0); Mean Corpuscular Volume 81.2 fL (81-99); Mean Platelet Vol. 8.4 fl (6.2-12.0); Monocyte# 1.17 X10^3/uL; Monocyte% 8.8 % (0-10); NRBC Flagged by Analyzer 0 % (0-5); Neutrophil # 10.64 X10^3/uL (2.7-7.7); Neutrophil % 79.8 % (47-70); Platelet Count 700 K/mm3 (150-450); RBC Distribution Width CV 17.9 % (11.6-14.6); Red Blood Count 3.29 M/mm3 (4.2-5.4); White Blood Count 13.3 K/mm3 (4.4-11.0)
== END | disposition home or self-care (01) ==
LOC: MTLAB 10:28
PROVIDERS: PCP Family Medicine; Referring Provider Family Medicine; Visit Provider Family Medicine
DX: D64.9 Anemia, unspecified (principal)
CPT/HCPCS: 36415; 85025

== ENCOUNTER → 2023-04-28 | Outpatient (CLI) | payer MEDICARE, OTHER, SELFPAY ==
--- NOTE | 2023-04-28 11:58 | BI_ITS ---
MAMMOGRAPHY - BILATERAL SCREENING 3-D TOMOSYNTHESIS REASON FOR EXAM: Female, 73 years old. Routine screening PERTINENT HISTORY: No significant family history. TECHNIQUE: 2-D mammograms and 3-D Tomosynthesis of the breast (s) were performed. CAD was performed. COMPARISON: No comparison mammograms available at this time. If any prior films become available, an addendum to this report can be generated. FINDINGS: The breast composition is composed of scattered fibroglandular density. Scattered benign calcifications are seen. No dense spiculated masses or suspicious microcalcifications are identified. No architectural distortion is identified. There is no skin thickening or retraction. BI/SCRN MAMM (CAD)W/JACKIE BILAT IMPRESSION: No mammographic signs of malignancy. Routine yearly mammograms recommended. ASSESSMENT CATEGORY: BIRADS Category 1: Negative. A letter regarding these results will be sent to the patient by the facility within 30 days. FOLLOW UP RECOMMENDATION: Yearly follow up mammogram recommended. (A) Approximately 10% of breast cancers are not detected by mammography. A normal mammogram should not delay biopsy of a clinically suspicious abnormality. Electronically Signed: Diego Churchill MD at 13:31 EDT ,
== END | disposition home or self-care (01) ==
LOC: OPBI 11:58
PROVIDERS: PCP Family Medicine; Referring Provider Internal Medicine Hematology & Oncology; Visit Provider Internal Medicine Hematology & Oncology
DX: Z12.31 Encounter for screening mammogram for malignant neoplasm of breast (principal)
CPT/HCPCS: 77063; 77067

== ENCOUNTER → 2023-05-04 | Outpatient (CLI) | payer MEDICARE, OTHER, SELFPAY ==
--- NOTE | 2023-05-04 08:51 | ADUL_ITS ---
Reason For Study: S/P Rt Pop A Atherectomy Right Velocities Ext. Iliac Artery, dist = 138.0 cm./sec. Common Femoral Artery, mid = 138.9 cm./sec. Supf Femoral Artery, prox = 80.3 cm./sec. Supf Femoral Artery, mid = 89.1 cm./sec. Supf Femoral Artery, dist. = 265.2 cm./sec. Profunda Femoral Artery = 175.0 cm./sec. Popliteal Artery, prox. = 66.8 cm./sec. Popliteal Artery, dist = 48.6 cm./sec. Post. Tibial Artery, prox = 43.1 cm./sec. Post. Tibial Artery, mid = 22.3 cm./sec. Post. Tibial Artery, dist = 10.4 cm./sec. Peroneal Artery, prox = 30.5 cm./sec. Peroneal Artery, mid = 25.8 cm./sec. Peroneal Artery,dist = 37.4 cm./sec. Ant. Tibial Artery, prox = 45.3 cm./sec. Ant. Tibial Artery, mid = 74.3 cm./sec. Ant. Tibial Artery, dist = 53.4 cm./sec. /US Art Duplex Unilat Lower Ext Interpretation Summary Right lower extremity arteries patent with distal SFA stenosis. Ordering Physician: Padma Magana Referring Physician: Elizabeth Tanner Performed By: Abdulaziz Franco, RVT
== END | disposition home or self-care (01) ==
LOC: CVS 08:50
PROVIDERS: PCP Family Medicine; Referring Provider Physician Assistant; Visit Provider Physician Assistant
DX: I70.221 Atherosclerosis of native arteries of extremities with rest pain, right leg (principal); Z48.812 Encounter for surgical aftercare following surgery on the circulatory system
CPT/HCPCS: 93926

== ENCOUNTER → 2023-05-19 | Outpatient (CLI) | payer MEDICARE, OTHER, SELFPAY ==
--- NOTE | 2023-05-19 13:06 | CT_ITS ---
STUDY: LOW DOSE CT LUNG CANCER SCREENING REASON FOR EXAM: Female, 73 years old. Lung cancer screening -- and gt;20 pk yr hx;current smoker;asymptomatic RADIATION DOSAGE (If Supplied By Facility): CTDIvol = ( 2.01 ) mGy, DLP = ( 75.50 ) mGycm TECHNIQUE: No contrast was administered. Low dose technique was utilized (average mAS-38 and kVp 120). 1.25 mm axial source images with a slice interval of 1.25-mm were reconstructed in lung windows. 2.5 mm axial source images with a slice interval of 2.5-mm were reconstructed in lung windows. 5.0 mm axial source images with a slice interval of 5.0-mm were reconstructed in soft tissue windows. COMPARISON: None. NODULES: No suspicious nodules are seen. Emphysema: Hyperinflation. Emphysematous changes. Scarring at the lung apices worse on the right side. Endobronchial lesion: None Aorta: Atherosclerotic calcific plaque of the aortic arch. CORONARY ARTERIES: Coronary artery calcification is seen. Heart: Unremarkable. Pulmonary artery: Unremarkable. Mediastinal nodes: Mediastinal lymph nodes. Other chest and abdominal findings: CT/Low Dose CT Lung Screening IMPRESSION: Lung-RADS category 2 - Continue annual screening with LDCT in 12 months. IMPORTANT NOTES FOR USE: ACR Lung-RADS Version 1.1 Assessment Categories Release Date: 2018 Category: Coded 0-4 bases on nodule(s) with highest degree of suspicion. Negative screen is defined as categories 1 and 2; a positive screen is defined as categories 3 and 4. Category 3 and 4A nodules that are unchanged on interval CT should be coded as category 2, and individuals returned to screening in 12 months. Category 4X: Category 3 or 4 nodules with additional imaging findings that increase the suspicion of lung cancer, such as spiculation, GGN that doubles in size in 1 year, enlarged lymph notes, etc. Category Modifiers: S (significant finding unrelated to lung cancer) Electronically Signed: Jasper Ratliff MD at 14:06 EDT ,
== END | disposition home or self-care (01) ==
LOC: CT 13:06
PROVIDERS: PCP Family Medicine; Referring Provider Nurse Practitioner Family; Visit Provider Nurse Practitioner Family
DX: Z12.2 Encounter for screening for malignant neoplasm of respiratory organs (principal); Z87.891 Personal history of nicotine dependence
CPT/HCPCS: 71271

== ENCOUNTER 2023-06-16 13:00 | Outpatient (RCR) | payer MEDICARE, OTHER, SELFPAY ==
--- NOTE | 2023-05-20 10:27 | HP.PTEVAL_ITS ---
Patient's Visit Information Visit Information Visit Information: MARIETTA CASIANO is a 73 year old F referred to Physical Therapy by SHANNON Lord with a diagnosis of Lumbar Pain. 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 [place] she had a lot of pain. She was sent to pain mgmt- and he sent her to PT and she has her first shot the of this month. She takes Tylenol and that helps on/off. 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 She feels like its getting worse. If she is walking or standing the back and pain and right groin pain is bad. Worst: 9/10 Agg: standing Eases: sitting down or bending forwards. Best: 7/10. She even hurts to drive due to the pedal. She has had x-rays and MRI's. Thats how they found the arthritis. She reports some N/T in the right side but that is not new- she can't wear sandals. The pain in the back is described as dull and achy and it hurts a lot. No loss or change in bowel or bladder. Very hard of hearing. Sleep: not disturbed. She does get CARTER. She is not very active because she hurts. PMHx/Meds: no changes since oncology visit in chart. Objective Objective: Posture: FH, RS- can correct with verbal and tactile cues but does not maintain Gait: decreased trunk rotation and arm swing HR/TR: able with UE A Balance: WS unable to SLS more than 3-5 sec without increased sway ROM: Lumbar: Flexion: hands to toes no pain Extn: neutral and reports pinching, SB/Rot: WFL with reports of discomfort more with rotation right. LE: WFL but reports pain with end range hip flexion Strength: Core: poor, Hip: 4-/5 throughout, Knee: 4+/5, Ankle: 5/5 Flex: HS: severe, Gastroc: mod, Piriformis: severe Palpation: tender along lumbar paraspinals Special Test: no directional preference noted Special Tests L/S Slump test left side: Positive L/S Slump test right side: Positive L/S Left Straight Leg Raise: Positive L/S Right Straight Leg Raise: Positive R Hip Scour: Positive R Hip CAROLA - Intraarticular Pathology: Positive R Hip FADDIR - Labrum: Positive R Hip Trendelenberg - Glut Medius: Positive L Hip Scour: Positive L Hip CAROLA - Intraarticular Pathology: Positive L Hip FADDIR - Labrum: Positive L Hip Trendelenberg - Glut Medius: Positive Balance/Special Test Scores Oswestry Low Back Score: 25 Goals Goal 1:: Patient will be I with HEP and progression Goal Time Frame: 4-6 Weeks Goal 2:: Patient will maintain proper posture t/o tx session to demo core s.s Goal Time Frame: 4-6 Weeks Goal 3:: Patient will report 80% improvement Goal Time Frame: 4-6 Weeks Rehabilitation Potential Physical Therapy Diagnosis: Patient presents with hypomobility- she has decr eased LE and core strength/stabilization, ROM, flex and muscular endurance leading to poor posture and increased pain with ADL's. Rehabilitation Potential: Fair Anticipated Interventions Patient/Client Instruction: Educate patient on: Benefits of Fitness Program Therapeutic Exercise to Include: Strength training, Endurance training, Balance training, Coordination, Agility training, Body mechanics, Postural training, Flexibilty training, Gait and locomotor training, Neuromotor development, Passive ROM, Active ROM, Dynamic Lumbar Stabilization and Scapular Strength/Stabilization For the Purpose of:: To improve muscle performance and motor function TENS: Yes Cryotherapy (ice pack, ice massage): Yes Thermo therapy (hot pack): Yes Ultrasound (thermal/non thermal): Yes Text: Thank you for the opportunity to evaluate your patient. For Medicare and Medicare HMO plans, please review the plan of care and approve it. It will need to be FAXED BACK to us at [phone] for Medicare purposes. For Medicare only, by signing this I certify the plan of care. Please let me know if there are questions or concerns regarding this plan of care. Physician Signature: Date:
--- NOTE | 2023-06-16 13:42 | HP.PTDCSUM_ITS ---
Discharge Summary D/C summary: It has been my pleasure to treat MARIETTA CASIANO referred by SHANNON Lord, with the diagnosis of Lumbar Pain for a total of 9 visit(s). Discharge Date: Please see the following information for a summary of their discharge status. Subjective Subjective: Patient reports that her back is feeling is better but she did not like the horacio system- she had a lot of pain with those. She sees her presidential support specialist for her neck on the . No pain due to the injections in the spine- they were last wed. Pain LB: Pain Intensity (Out of 10): 0 Overall Improvement % Improvement: 100 Objective Objective/Function: Posture: fair throughout Gait: no deviation noted HR/TR: able with UE A Balance: WS unable to SLS more than 3-5 sec without increased sway ROM: Lumbar: Flexion: hands to toes no pain Extn: neutral no pain, SB/Rot: WFL no pain noted. LE: WFL no pain Strength: Core: fair, Hip: 4+/5 throughout, Knee: 5/5, Ankle: 5/5 Flex: HS: mod, Gastroc: mod, Piriformis: mod Palpation: not tender to touch Goals Goal 1:: Patient will be I with HEP and progression Goal Progress: Goal Met Goal 2:: Patient will maintain proper posture t/o tx session to gaby patino s.s Goal Progress: Goal Met Goal 3:: Patient will report 80% improvement Goal Progress: Goal Met Plan Plan: 06/16/23: Discharge to I HEP Focus on core strength/stabilization- US as modality of choice HEP Given IE: TA contraction, hip adduction hooklying, bridge- postural correction D/C Information d/c sentence: If there are questions or concerns regarding this patient's physical therapy, please feel free to call me at [phone]. Thank you for the referral of this patient. Sincerely, Samantha Parson, DPT Balance/Gait/Functional tests Balance/Special Test Scores Oswestry Low Back Score: 2 Improvement % Improvement: 100
== END 2023-06-16 19:00 | disposition home or self-care (01) ==
LOC: PT 13:00
PROVIDERS: PCP Family Medicine; Referring Provider Nurse Practitioner Acute Care; Visit Provider Nurse Practitioner Acute Care
DX: M54.17 Radiculopathy, lumbosacral region (principal); M43.16 Spondylolisthesis, lumbar region
CPT/HCPCS: 97035; 97110; 97162; 97164; 97530

== ENCOUNTER → 2023-06-25 | Outpatient (CLI) | payer MEDICARE, OTHER, SELFPAY ==
--- NOTE | 2023-06-25 16:13 | RAD_ITS ---
STUDY: X-RAY - CERVICAL SPINE REASON FOR EXAM: Female, 73 years old. SPASMS TECHNIQUE: 6 view(s) of the cervical spine were obtained. COMPARISON: None FINDINGS: Normal anterior atlantoaxial articulation. Normal odontoid process. Normal cervical lordosis. Normal vertebral bodies with spurring at the lower cervical endplates. Narrowed disc space heights from C4-5 through C6-7. Narrowed left C5-C6 and C6-7 intervertebral neuroforamina, and right C2-3, C3-4 and C5-6 intervertebral neural foramina. The soft tissue structures are unremarkable. RAD/Cerv Spine 4 or 5 Views IMPRESSION: Degenerative changes of the visualized cervical spine. Electronically Signed: Destin Rain DO at 16:47 EDT ,
== END | disposition home or self-care (01) ==
LOC: MTRAD 16:11
PROVIDERS: PCP Family Medicine; Visit Provider Family Medicine
DX: M62.838 Other muscle spasm (principal)
CPT/HCPCS: 72050

== ENCOUNTER → 2023-10-28 | Outpatient (CLI) | payer MEDICARE, OTHER, SELFPAY ==
--- NOTE | 2023-10-28 08:50 | ADUL_ITS ---
Reason For Study: S/P Rt POP A Atherectomy Right Velocities Ext. Iliac Artery, dist = 66.2 cm./sec. Common Femoral Artery, mid = 82.1 cm./sec. Supf Femoral Artery, prox = 151.6 cm./sec. Supf Femoral Artery, mid = 112.8 cm./sec. Supf Femoral Artery, dist. = 138.7 cm./sec. Profunda Femoral Artery = 63.7 cm./sec. Popliteal Artery, prox. = 83.8 cm./sec. Popliteal Artery, mid = 49.1 cm./sec. Popliteal Artery, dist = 51.0 cm./sec. Post. Tibial Artery, prox = 32.2 cm./sec. Post. Tibial Artery, mid = 28.7 cm./sec. Post. Tibial Artery, dist = 26.1 cm./sec. Peroneal Artery, prox = 40.9 cm./sec. Peroneal Artery, mid = 19.1 cm./sec. Peroneal Artery,dist = 61.9 cm./sec. Ant. Tibial Artery, prox = 51.0 cm./sec. Ant. Tibial Artery, mid = 47.3 cm./sec. Ant. Tibial Artery, dist = 49.1 cm./sec. /US Art Duplex Unilat Lower Ext Interpretation Summary Right lower extremity arteries patent with normal velocities and no evidence of stenosis Prior popliteal intervention with no stenosis/occlusion Ordering Physician: Padma Harden Referring Physician: Elizabeth Tanner Performed By: Abdulaziz Franco RVT
--- NOTE | 2023-10-28 08:50 | ART_ITS ---
Reason For Study: S/P Rt POP A Atherectomy Procedure A bilateral lower extremity continuous wave Doppler with analog waveform analysis and ankle brachial indexes. Left Segmental Pressures Left brachial= 145mmHg. Left posterior tibial artery = 117mmHg. Left dorsalis pedis artery = 143mmHg. Left digit = 90 mmHg. The left posterior tibial artery waveforms are biphasic. The left dorsalis pedis waveforms are triphasic. Right Segmental Pressures Right brachial= 147mmHg. Right posterior tibial artery = 145mmHg. Right dorsalis pedis artery = 148mmHg. Right digit = 107 mmHg. The right posterior tibial artery waveforms are triphasic. The right dorsalis pedis waveforms are triphasic. Indices The right ankle brachial index by the posterior tibial artery is 0.99. The right ankle brachial index by the dorsalis pedis is 1.01. The right digital-brachial index is 0.73. The left ankle brachial index by the posterior tibial artery is 0.80. The left ankle brachial index by the dorsalis pedis is 0.97. The left digital-brachial index is 0.61. VL/Ankle Brachial Index Interpretation Summary Right SUSAN 1.01, normal. Doppler/PVR waveforms of the right ankle normal at rest . TBI diminished, pedal/digit disease vs spasm. Left SUSAN 0.97, mild arterial insufficiency. Doppler/PVR waveforms of the left a nkle mildly diminished at rest. Ordering Physician: Padma Harden Referring Physician: Elizabeth Tanner Performed By: Abdulaziz Franco, RVT
== END | disposition home or self-care (01) ==
LOC: CVS 08:50
PROVIDERS: PCP Family Medicine; Referring Provider Physician Assistant; Visit Provider Physician Assistant
DX: Z48.812 Encounter for surgical aftercare following surgery on the circulatory system (principal); I70.221 Atherosclerosis of native arteries of extremities with rest pain, right leg
CPT/HCPCS: 93922; 93926

== ENCOUNTER → 2023-11-17 | Outpatient (CLI) | payer MEDICARE, OTHER, SELFPAY ==
[2023-11-17 17:35] LABS: Absolute Lymphocyte Count 2.31 X10^3/uL (0.83-4.51); Basophil% 0.9 % (0-1); Eosinophil# 0.19 X10^3/uL; Eosinophils% 1.6 % (0-5); Hematocrit 41.2 % (37-47); Hemoglobin 13.2 g/dL (12.0-15.0); Lymphocyte # 2.31 X10^3/ul (0.83-4.51); Lymphocyte % 19.7 % (19-41); Mean Corpuscular Hgb 28.9 pg (27.0-32.0); Mean Corpuscular Volume 90.4 fL (81-99); Mean Platelet Vol. 9.2 fl (6.2-12.0); Monocyte# 1.02 X10^3/uL; Monocyte% 8.7 % (0-10); NRBC Flagged by Analyzer 0 % (0-5); Neutrophil # 8.03 X10^3/uL (2.7-7.7); Neutrophil % 68.5 % (47-70); Platelet Count 379 K/mm3 (150-450); RBC Distribution Width CV 15.9 % (11.6-14.6); RBC Distribution Width SD 52.4 fl (35.1-43.9); Red Blood Count 4.56 M/mm3 (4.2-5.4); White Blood Count 11.7 K/mm3 (4.4-11.0)
[2023-11-17 17:50] LABS: ALB/GLOB Ratio 0.9 RATIO (0.9-2.4); AST(SGOT) 10 U/L (15-37); Alanine Aminotransfer ALT/SGPT 23 U/L (13-56); Albumin, Serum 3.6 g/dL (3.2-5.0); Alkaline Phosphatase 87 U/L (45-117); Anion Gap 3 (5-15); BUN 16 mg/dL (7-18); BUN/Creat Ratio 19.3 RATIO (10-20); Calcium,Total 9.2 mg/dL (8.5-10.1); Chloride 103 mmol/L (98-107); Creatinine, Serum 0.83 mg/dL (0.55-1.02); EST Glomerular Filtration Rate 71 mL/min (>60); Est Glom Filt Rate - Afr Amer 86 mL/min (>60); Ferritin 36 ng/mL (8-252); Globulin 3.8 g/dL (2.2-4.2); Glucose 87 mg/dL (74-106); Protein, Total 7.4 g/dL (6.4-8.2); Sodium Level 133 mmol/L (136-145)
== END | disposition home or self-care (01) ==
LOC: BFHLAB 15:29
PROVIDERS: PCP Family Medicine; Visit Provider Family Medicine
DX: D64.9 Anemia, unspecified (principal); I73.9 Peripheral vascular disease, unspecified
CPT/HCPCS: 36415; 80053; 82728; 85025

== ENCOUNTER → 2024-05-24 | Outpatient (CLI) | payer MEDICARE, OTHER, SELFPAY ==
--- NOTE | 2024-05-24 11:45 | BI_ITS ---
MAMMOGRAPHY - BILATERAL SCREENING REASON FOR EXAM: Female, 74 years old. Routine annual screening examination. PERTINENT HISTORY: Non-contributory. TECHNIQUE: Digital bilateral breast jackie (3D mammographic acquisition) in the CC and MLO projections. 2-D mediolateral oblique (MLO) and craniocaudad (CC) views of both breasts were obtained. CAD: Full Field Digital Mammography with Computer Added Detection was performed. COMPARISON: Comparison is made with prior study dated April 28, 2023. FINDINGS: Breast Composition: There are scattered areas of fibroglandular density. There are no dominant masses or suspicious calcifications. Stable bilateral fat containing axillary lymph nodes. No other significant abnormalities are identified. There has been no significant change since the prior study. BI/SCRN MAMM (CAD)W/JACKIE BILAT IMPRESSION: Stable bilateral screening mammogram. Yearly follow-up mammogram recommended. (A) ASSESSMENT CATEGORY: BIRADS Category 2: Benign. A letter regarding these results will be sent to the patient by the facility within 30 days. Approximately 10% of breast cancers are not detected by mammography. A normal mammogram should not delay biopsy of a clinically suspicious abnormality. [id number] Electronically Signed: Jasper Ratliff MD at 13:19 EDT ,
--- NOTE | 2024-05-24 13:34 | CT_ITS ---
STUDY: LOW DOSE CT LUNG CANCER SCREENING REASON FOR EXAM: Female, 74 years old. Lung cancer screening -- 46 pk yr hx;current smoker;asymptomatic RADIATION DOSAGE (If Supplied By Facility): CTDIvol = ( 2.39 ) mGy, DLP = ( 80.41 ) mGycm TECHNIQUE: No contrast was administered. Low dose technique was utilized (average mAS-38 and kVp 120). 1.25 mm axial source images with a slice interval of 1.25-mm were reconstructed in lung windows. 2.5 mm axial source images with a slice interval of 2.5-mm were reconstructed in lung windows. 5.0 mm axial source images with a slice interval of 5.0-mm were reconstructed in soft tissue windows. COMPARISON: Comparison is made with prior study May 19, 2023. NODULES: No suspicious findings are seen. Emphysema: Hyperinflation. Emphysematous changes. Scarring at the lung apices. Endobronchial lesion: None Aorta: Atherosclerotic calcific plaques of the aortic arch. CORONARY ARTERIES: Coronary artery calcification is seen. Heart: Unremarkable Pulmonary artery: Unremarkable Mediastinal nodes: Small benign-appearing mediastinal lymph nodes. Other chest and abdominal findings: CT/Low Dose CT Lung Screening IMPRESSION: Lung-RADS category 2 - Continue annual screening with LDCT in 12 months. IMPORTANT NOTES FOR USE: ACR Lung-RADS Version 1.1 Assessment Categories Release Date: 2018 Category: Coded 0-4 bases on nodule(s) with highest degree of suspicion. Negative screen is defined as categories 1 and 2; a positive screen is defined as categories 3 and 4. Category 3 and 4A nodules that are unchanged on interval CT should be coded as category 2, and individuals returned to screening in 12 months. Category 4X: Category 3 or 4 nodules with additional imaging findings that increase the suspicion of lung cancer, such as spiculation, GGN that doubles in size in 1 year, enlarged lymph notes, etc. Category Modifiers: S (significant finding unrelated to lung cancer) Electronically Signed: Jasper Ratliff MD at 14:28 EDT ,
== END | disposition home or self-care (01) ==
LOC: OPBI 11:37
PROVIDERS: PCP Family Medicine; Referring Provider Internal Medicine Hematology & Oncology; Visit Provider Internal Medicine Hematology & Oncology
DX: Z12.31 Encounter for screening mammogram for malignant neoplasm of breast (principal); Z12.2 Encounter for screening for malignant neoplasm of respiratory organs; Z87.891 Personal history of nicotine dependence
CPT/HCPCS: 71271; 77063; 77067

== ENCOUNTER → 2024-10-10 | Outpatient (CLI) | payer MEDICARE, OTHER, SELFPAY ==
--- NOTE | 2024-10-10 10:24 | RAD_ITS ---
STUDY: X-RAY - THORACIC SPINE REASON FOR EXAM: Female, 74 years old. PAIN TECHNIQUE: 3 view(s) of the thoracic spine were obtained. COMPARISON: None. FINDINGS: Normal kyphosis of the thoracic spine. Mild levoscoliosis centered at T10. There is multilevel endplate spondylosis of the thoracic vertebrae. There is multilevel disc space narrowing of the thoracic spine. The soft tissue structures are unremarkable. RAD/Thoracic Spine 3 Views IMPRESSION: Mild levoscoliosis of the lower thoracic spine with degenerative disc disease. Electronically Signed: Javier Polanco MD at 10:08 EST ,
== END | disposition home or self-care (01) ==
LOC: MTRAD 10:22
PROVIDERS: PCP Family Medicine; Referring Provider Clinical Nurse Specialist Adult Health; Visit Provider Clinical Nurse Specialist Adult Health
DX: M54.6 Pain in thoracic spine (principal)
CPT/HCPCS: 72072

== ENCOUNTER → 2024-10-13 | Outpatient (CLI) | payer MEDICARE, OTHER, SELFPAY ==
--- NOTE | 2024-10-13 09:49 | ART_ITS ---
Reason For Study: S/P Rt POP A atherectomy Procedure A bilateral lower extremity continuous wave Doppler with analog waveform analysis and ankle brachial indexes. Left Segmental Pressures Left brachial= 144mmHg. Left posterior tibial artery = 136mmHg. Left dorsalis pedis artery = 130mmHg. Left digit = 88 mmHg. The left posterior tibial artery waveforms are biphasic. The left dorsalis pedis waveforms are triphasic. Right Segmental Pressures Right brachial= 147mmHg. Right posterior tibial artery = 146mmHg. Right dorsalis pedis artery = 148mmHg. Right digit = 103 mmHg. The right posterior tibial artery waveforms are biphasic. The right dorsalis pedis waveforms are triphasic. Indices The right ankle brachial index by the posterior tibial artery is 0.99. The right ankle brachial index by the dorsalis pedis is 1.01. The right digital-brachial index is 0.70. The left ankle brachial index by the posterior tibial artery is 0.93. The left ankle brachial index by the dorsalis pedis is 0.88. The left digital-brachial index is 0.60. VL/Ankle Brachial Index Interpretation Summary Right SUSAN 1.01, normal. Doppler/PVR waveforms of the right ankle normal at rest . TBI diminished, pedal/digit disease vs spasm. Left SUSAN 0.93, mild arterial insufficiency. Doppler/PVR waveforms of the left a nkle normal at rest. Ordering Physician: Padma Harden Referring Physician: Miedel. Johnson Performed By: Abdulaziz Franco, RVT
--- NOTE | 2024-10-13 09:49 | ADUL_ITS ---
Reason For Study: S/P Rt POP A Atherectomy Right Velocities Ext. Iliac Artery, dist = 64.4 cm./sec. Common Femoral Artery, mid = 80.9 cm./sec. Supf Femoral Artery, prox = 103.9 cm./sec. Supf Femoral Artery, mid = 116.7 cm./sec. Supf Femoral Artery, dist. = 93.0 cm./sec. Profunda Femoral Artery = 30.4 cm./sec. Popliteal Artery, prox. = 65.6 cm./sec. Popliteal Artery, mid = 39.5 cm./sec. Popliteal Artery, dist = 41.7 cm./sec. Post. Tibial Artery, prox = 34.0 cm./sec. Post. Tibial Artery, mid = 20.6 cm./sec. Post. Tibial Artery, dist = 19.9 cm./sec. Peroneal Artery, prox = 17.0 cm./sec. Peroneal Artery, mid = 21.3 cm./sec. Peroneal Artery,dist = 18.4 cm./sec. Ant. Tibial Artery, prox = 48.6 cm./sec. Ant. Tibial Artery, mid = 56.0 cm./sec. Ant. Tibial Artery, dist = 44.8 cm./sec. Procedure The exam was diagnostic. Exam performed in department. /US Art Duplex Unilat Lower Ext Interpretation Summary Right lower extremity arteries patent with normal velocities and no evidence of stenosis Ordering Physician: Padma Harden Referring Physician: Elizabeth Tanner Performed By: Abdulaziz Franco, RVT
== END | disposition home or self-care (01) ==
PROVIDERS: PCP Family Medicine; Referring Provider Physician Assistant; Visit Provider Physician Assistant
DX: Z48.812 Encounter for surgical aftercare following surgery on the circulatory system (principal); I70.221 Atherosclerosis of native arteries of extremities with rest pain, right leg
CPT/HCPCS: 93922; 93926

== ENCOUNTER → 2024-10-18 | Outpatient (CLI) | payer MEDICARE, OTHER, SELFPAY ==
[2024-10-18 18:51] LABS: ALB/GLOB Ratio 0.9 RATIO (0.9-2.4); AST(SGOT) 18 U/L (15-37); Alanine Aminotransfer ALT/SGPT 26 U/L (13-56); Albumin, Serum 3.5 g/dL (3.2-5.0); Alkaline Phosphatase 111 U/L (45-117); Anion Gap 5 (5-15); BUN 13 mg/dL (7-18); BUN/Creat Ratio 13.7 RATIO (10-20); Calcium,Total 9.1 mg/dL (8.5-10.1); Chloride 108 mmol/L (98-107); Cholesterol 278 mg/dL (200); Creatinine, Serum 0.95 mg/dL (0.55-1.02); EST Glomerular Filtration Rate 61 mL/min (>60); Est Glom Filt Rate - Afr Amer 74 mL/min (>60); Glucose 92 mg/dL (74-106); High Density Lipoprotein 38 mg/dL; Potassium 3.9 mmol/L (3.5-5.1); Protein, Total 7.5 g/dL (6.4-8.2); Sodium Level 138 mmol/L (136-145); Triglycerides 250 mg/dL; Very Low Density Lipoprotein 50 mg/dL (5-40)
== END | disposition home or self-care (01) ==
LOC: BFHLAB 16:13
PROVIDERS: PCP Family Medicine; Referring Provider Family Medicine; Visit Provider Family Medicine
DX: I73.9 Peripheral vascular disease, unspecified (principal)
CPT/HCPCS: 36415; 80053; 80061

== ENCOUNTER → 2024-11-18 | Outpatient (CLI) | payer MEDICARE, OTHER, SELFPAY ==
[2024-11-18 18:10] LABS: AST(SGOT) 15 U/L (15-37); Alanine Aminotransfer ALT/SGPT 21 U/L (13-56); Albumin, Serum 3.4 g/dL (3.2-5.0); Alkaline Phosphatase 114 U/L (45-117); Cholesterol 141 mg/dL (200); Globulin 4.3 g/dL (2.2-4.2); High Density Lipoprotein 42 mg/dL; Protein, Total 7.7 g/dL (6.4-8.2); Triglycerides 173 mg/dL; Very Low Density Lipoprotein 35 mg/dL (5-40)
== END | disposition home or self-care (01) ==
LOC: BFHLAB 14:59
PROVIDERS: PCP Family Medicine; Visit Provider Family Medicine
DX: I73.9 Peripheral vascular disease, unspecified (principal); E78.5 Hyperlipidemia, unspecified; R31.9 Hematuria, unspecified
CPT/HCPCS: 36415; 80061; 80076; 87086; 87088

== ENCOUNTER → 2025-05-30 | Outpatient (CLI) | payer MEDICARE, OTHER, SELFPAY ==
--- NOTE | 2025-05-30 12:15 | BI_ITS ---
EXAM: SCRN MAMM (CAD)W/JACKIE BILAT DATE: 05/30/2025 CLINICAL HISTORY: F, Age 75 y/o , ANNUAL SCREENING No family history. TECHNIQUE: SCRN MAMM (CAD)W/JACKIE BILAT COMPARISON: Prior exam(s) dated May 24, 2024.. FINDINGS: TISSUE DENSITY: There are scattered areas of fibroglandular density. Bilateral Breast Mammographic Findings: No significant masses, calcifications or other abnormalities are identified. Stable fat containing bilateral axillary lymph nodes. No suspicious masses, areas of developing architectural distortion, or suspicious calcifications. There has been no significant interval change. BI/SCRN MAMM (CAD)W/JACKIE BILAT IMPRESSION: Stable examination. OVERALL FINAL ASSESSMENT BI-RADS 2: BENIGN RECOMMENDATION: Routine annual follow-up in 1 Year A letter with findings and recommendations will be mailed to the patient. Reading Location: [id number]
== END | disposition home or self-care (01) ==
PROVIDERS: PCP Family Medicine; Referring Provider Internal Medicine Hematology & Oncology; Visit Provider Internal Medicine Hematology & Oncology
DX: Z12.31 Encounter for screening mammogram for malignant neoplasm of breast (principal)
CPT/HCPCS: 77063; 77067

== ENCOUNTER → 2025-06-01 | Outpatient (CLI) | payer MEDICARE, OTHER, SELFPAY ==
--- NOTE | 2025-06-01 13:46 | ART_ITS ---
Reason For Study Reason For Study: HX Rt POP A Angioplasty Procedure A bilateral lower extremity continuous wave Doppler with analog waveform analysis and ankle brachial indexes. Left Segmental Pressures Left brachial= 156mmHg. Left posterior tibial artery = 131mmHg. Left dorsalis pedis artery = 132mmHg. Left digit = 104 mmHg. The left posterior tibial artery waveforms are biphasic. The left dorsalis pedis waveforms are triphasic. Right Segmental Pressures Right brachial= 159mmHg. Right posterior tibial artery = 118mmHg. Right dorsalis pedis artery = 108mmHg. Right digit = 83 mmHg. The right posterior tibial artery waveforms are biphasic. The right dorsalis pedis waveforms are biphasic. Indices The right ankle brachial index by the posterior tibial artery is 0.74. The right ankle brachial index by the dorsalis pedis is 0.68. The right digital-brachial index is 0.52. The left ankle brachial index by the posterior tibial artery is 0.82. The left ankle brachial index by the dorsalis pedis is 0.83. The left digital-brachial index is 0.65. VL/Ankle Brachial Index Interpretation Summary Right SUSAN 0.74, moderate arterial insufficiency. Doppler/PVR waveforms of the r ight ankle moderately diminished at rest. Left SUSAN 0.83, moderate arterial insufficiency. Doppler/PVR waveforms of the le ft ankle moderately diminished at rest. Ordering Physician: Padma Harden Referring Physician: Elizabeth Tanner Performed By: Abdulaziz Franco, RVT
--- NOTE | 2025-06-01 13:46 | ADUL_ITS ---
Reason For Study Reason For Study: HX Rt POP A Angio Right Velocities Ext. Iliac Artery, dist = 140.6 cm./sec. Common Femoral Artery, mid = 84.7 cm./sec. Supf Femoral Artery, prox = 84.7 cm./sec. Supf Femoral Artery, mid = 76.0 cm./sec. Elevated velocity noted at mid SFA- 539.7 cm/s Post focal stenosis - 199.1 cm/s. Supf Femoral Artery, dist. = 86.7 cm./sec. Profunda Femoral Artery = 45.2 cm./sec. Popliteal Artery, prox. = 36.3 cm./sec. Popliteal Artery, mid = 24.2 cm./sec. Popliteal Artery, dist = 30.8 cm./sec. Post. Tibial Artery, prox = 11.8 cm./sec. Post. Tibial Artery, mid = 12.5 cm./sec. Post. Tibial Artery, dist = 8.3 cm./sec. Peroneal Artery, prox = 13.2 cm./sec. Peroneal Artery, mid = 12.5 cm./sec. Peroneal Artery,dist = 11.8 cm./sec. Ant. Tibial Artery, prox = 33.9 cm./sec. Ant. Tibial Artery, mid = 33.2 cm./sec. Ant. Tibial Artery, dist = 36.0 cm./sec. Procedure The exam was diagnostic. Exam performed in department. VL/US Art Duplex Unilat Lower Ext Interpretation Summary Right superficial femoral artery with >50% stenosis Ordering Physician: Padma Harden Referring Physician: Elizabeth Tanner Performed By: Abdulaziz Franco, RVT
== END | disposition home or self-care (01) ==
LOC: CVS 13:44
PROVIDERS: PCP Family Medicine; Referring Provider Physician Assistant; Visit Provider Physician Assistant
DX: Z48.812 Encounter for surgical aftercare following surgery on the circulatory system (principal)
CPT/HCPCS: 93922; 93926

== ENCOUNTER → 2025-06-20 | Outpatient (CLI) | payer MEDICARE, OTHER, SELFPAY ==
--- NOTE | 2025-06-20 12:27 | CT_ITS ---
PROCEDURE: LOW DOSE CT LUNG SCREENING 06/20/2025 REASON FOR EXAM: LUNG CANCER SCREENING Former smoker. Patient has smoked 1-1/2 pack per day for 40 years. TECHNIQUE: Procedure Code: [id number] Modality: CT Procedure: LOW DOSE CT LUNG SCREENING Coronal and Sagittal reconstruction series were provided. One or more dose reduction techniques were used (e.g., Automated exposure control, adjustment of the mA and/or kV according to patient size, use of iterative reconstruction technique). REFERENCE LINK: [facility] Lung-RADS RADIATION DOSE SUMMARY: CTDlvol: 2.39 mGy DLP: 76.83 mGycm COMPARISON: Prior study dated May 24, 2024. FINDINGS: PULMONARY NODULES: (Only nodules >3mm are reported) Nodules described below are on series 1 unless otherwise specified. Pulmonary Nodules: No suspicious pulmonary nodules seen. Hardware:None Lymph Nodes:Small benign-appearing mediastinal lymph nodes. Heart and Vasculature:The heart is nonenlarged.Atherosclerotic calcifications of the thoracic aorta. Thoracic aorta and pulmonary arteries have normal contours; noncontrast technique limits evaluation. Coronary Artery Calcifications: Present Lungs and Airways: Mild emphysematous changes are present. Pleura:No pleural effusion. Upper Abdomen:Unremarkable Bones:Degenerative changes of the thoracic spine. CT/Low Dose CT Lung Screening IMPRESSION: No suspicious pulmonary nodule. Coronary artery calcification (CAC) is is present Lung-RADS Category: 2 BENIGN (BASED ON IMAGING FEATURES OR INDOLENT BEHAVIOR). RECOMMEND 12-MONTH SCREENING LDCT. Other Significant Findings: Reading Location: [facility]
== END | disposition home or self-care (01) ==
LOC: CT 12:26
PROVIDERS: PCP Family Medicine; Referring Provider Nurse Practitioner Family; Visit Provider Nurse Practitioner Family
DX: Z12.2 Encounter for screening for malignant neoplasm of respiratory organs (principal); Z87.891 Personal history of nicotine dependence
CPT/HCPCS: 71271

== ENCOUNTER 2025-07-13 06:38 | Day surgery (SDC) | payer MEDICARE, OTHER, SELFPAY ==
[2025-07-12 09:14] VITALS: BMI 26.3
[2025-07-13 07:42] LABS: Hematocrit 40.9 % (37-47); Hemoglobin 13.4 g/dL (12.0-15.0); Mean Corp Hgb Conc 32.8 g/dL (32-36); Mean Corpuscular Volume 90.3 fL (81-99); Mean Platelet Vol. 9.8 fl (6.2-12.0); Platelet Count 267 K/mm3 (150-450); RBC Distribution Width CV 13.9 % (11.6-14.6); RBC Distribution Width SD 46.2 fl (35.1-43.9); Red Blood Count 4.53 M/mm3 (4.2-5.4); White Blood Count 7.6 K/mm3 (4.4-11.0)
[2025-07-13 08:27] LABS: Anion Gap 12 (5-15); BUN 18 mg/dL (4-19); BUN/Creat Ratio 19.8 RATIO (10-20); Calcium,Total 9.4 mg/dL (7.6-11.0); Carbon Dioxide 23.0 mmol/L (21.0-32.0); Chloride 103 mmol/L (98-108); Estimated Creatinine Clearance 66.37 ml/min (50-250); Glucose 93 mg/dL (70-99); Potassium 4.5 mmol/L (3.3-5.1)
[2025-07-13 12:22] LABS: ACT Activated Clotting Time 199 sec (74-137)
--- NOTE | 2025-07-13 16:19 | OP.PCM_ITS ---
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 She has had recurrence of short distance claudication and noninvasive vascular studies revealed significant drop in her SUSAN and evidence of significant stenosis in the SFA and proximal popliteal artery. She presents now for angiogram with possible invention. Description of procedure: Upon obtaining informed consent and verification correct patient procedure site the patient was taken to the [facility] where she was positioned prepped and draped in usual sterile fashion. Timeout was perfor med to count sedation administered Versed and fentanyl. Skin overlying left common femoral artery was anesthetized 1% lidocaine the vessel accessed under ultrasound guidance with a micropuncture needle wire. This is then exchanged for micropuncture sheath through which hand-injection iliofemoral angiogram was performed revealing satisfactory positioning with no extravasation or dissection. Through the micropuncture sheath a Bentson wire was advanced into the abdominal aorta micropuncture sheath exchanged for a short 6 Bangladeshi sheath. Omni Flush catheter was then advanced into the aorta and digital subtraction aortogram pelvic angiograms were performed. This revealed normal caliber abdominal aorta with moderate diffuse calcified atherosclerosis. The left common and external iliac arteries were patent normal caliber with moderate diffuse atherosclerosis. Using the Bentson wire and Omni Flush catheter we navigated into the contralateral iliac system advancing a catheter into the dis lyric external iliac artery. From this position digital subtraction subtraction angiography was performed sequentially of the right lower extremity. This revealed common femoral, profundofemoral, proximal superficial femoral artery to be patent with mild atherosclerosis but no stenosis. The distal superficial femoral artery had 2 tandem areas of stenosis greater than 75%. Additionally there was an above-knee popliteal stenosis greater than 75% at the location of the proximal total occlusion treatment formed in the past. The remainder of the popliteal artery was widely patent normal caliber with no significant atherosclerosis or stenosis. The anterior tibial artery was a dominant runoff large caliber vessel with no significant atherosclerosis or stenosis. The tibioperoneal trunk, posterior tibial artery, peroneal artery were highly diseased small caliber vessels. It was felt that the SFA and popliteal lesions were appropriate for endovascular treatment so the patient was then heparinized and allowed to circulate for 3 minutes. Bentson wire was then advanced through the Omni Flush catheter advanced into the proximal superficial femoral artery. The Omni Flush catheter and short 6 Bangladeshi sheath then exchanged for a 6 Bangl[place]hi 65 destination sheath advanced in the proximal superficial femoral artery. From this position utilizing the Bentson wire and a quick cross catheter we navigated across the areas of stenosis into the distal popliteal artery. The wire was then withdrawn a hand-injection subtraction angiography confirmed satisfactory positioning with no extravasation or dissection. Through the quick cross catheter a Vermillion wire was advanced and the catheter withdrawn. An intravascular ultrasound probe was advanced over the wire and recorded pullback performed of the popliteal and superficial femoral artery. This confirmed positioning within the true lumen and confirmed severity of the areas of stenosis with moderate diffuse disease between the proximal 2 lesions which would be treated as a single segment. Next the [employer] Vermillion atherectomy device was brought in the field preparation factors instructions. This was then advanced over the wire and engaged across each of the lesion treatment zones for 2 passes and then withdrawn. The proximal lesion was then treated with balloon angioplasty 4 x 80 major angioplasty balloon inflated to nominal for 3 minutes and deflated withdrawn. A second major 6 x 40 was then advanced in position of the distal lesion inflated to nominal and deflated withdrawn. Angiography confirmed satisfactory lesion response with no extravasation or dissection and no residual stenosis. Next a Bard lutonics 6 x 40 paclitaxel coated angioplasty balloon was advanced to the distal lesion inflated to nominal for 2 minutes and deflated and withdrawn. Finally a Bard Lovely tonics 4 x 80 was advanced the proximal lesion and inflated to burst for 2 minutes then deflated withdrawn. Completion angiography revealed satisfactory lesion response with no extravasation or dissection or residual stenosis. There is brisk contrast transit and preserved runoff into the predominantly anterior tibial artery. Wires and catheters were then withdrawn and the long 6 Bangladeshi sheath exchanged for short 6 Bangl[place]hi sheath followed by Mynx closure device and 5 minutes of manual pressure. The patient was then taken the recovery of her bedrest prior to discharge to home Surgical Findings: See above Complications Complications: No
== END 2025-07-13 14:00 | disposition home or self-care (01) ==
PROVIDERS: PCP Family Medicine; Referring Provider Surgery Trauma Surgery; Visit Provider Surgery Trauma Surgery
DX: I70.211 Atherosclerosis of native arteries of extremities with intermittent claudication, right leg (principal); I70.92 Chronic total occlusion of artery of the extremities; Z79.82 Long term (current) use of aspirin; Z79.899 Other long term (current) drug therapy; E78.00 Pure hypercholesterolemia, unspecified; Z87.891 Personal history of nicotine dependence; D64.9 Anemia, unspecified; I70.0 Atherosclerosis of aorta
CPT/HCPCS: 36200; 36245; 37225; 37252; 75625; 75710; 76937; 80048; 85027; 85347; 99152; 99153; C1724; C1725; C1753; C1760; C1769; C1887; C1894; C2623; Q9967